=== PATIENT | female | born 1995 | race African-American/Black ===

== ENCOUNTER 2020-09-22 18:29 | Emergency (ER) | payer OTHER, SELFPAY ==
[2020-09-22 18:44] VITALS: BP 110/87; PULSE 63; RESP 20; TEMP 36.8; O2SAT 100
--- NOTE | 2020-09-22 21:09 | PC.NURSE ---
patient wants to leave to go to the hospital that she had my baby at .
== END 2020-09-22 21:10 | disposition left against medical advice (07) ==
DX: R51.9 Headache, unspecified (principal)
CPT/HCPCS: 99199

== ENCOUNTER 2025-02-21 14:35 | Emergency (ER) | payer OTHER, SELFPAY ==
--- NOTE | ~2025-02-21 | CT_ITS ---
EXAMINATION: CT abdomen pelvis w con DATE: 02/21/2025 19:06 INDICATION: Lower abdominal pain TECHNIQUE: Computed tomography (CT) of the abdomen and pelvis was performed with 100 mL Omnipaque-350 intravenous contrast. Automated exposure control and iterative reconstruction technique were employe d. The dose-length product was 169.85 mGy-cm. COMPARISON: None FINDINGS: Lung bases are clear. Heart size is normal. No pericardial or pleural effusion. Focal hepatic steatos is at the ligamentum teres. Gallbladder, spleen, pancreas, bilateral adrenal glands and kidneys are n ormal. Bowels including the appendix are normal. Bladder is normal. Anteverted uterus and bilateral a dnexa are unremarkable. Minimal likely physiologic free fluid in the cul-de-sac. No free intraperiton eal gas. No pathologically enlarged abdominal or pelvic lymphadenopathy. Mild thoracolumbar dextrocur vature. IMPRESSION: 1. No acute intra-abdominal/pelvic process. Reviewed, dictated and finalized at location A.
--- NOTE | ~2025-02-21 | US_ITS ---
EXAMINATION: US pelvic complete w TV DATE: 02/21/2025 22:18 INDICATION: Lower abdominal pain. Assess for ovarian torsion. TECHNIQUE: Multiple transabdominal and endovaginal sonographic images of the pelvis were obtained. COMPARISON: CT dated 02/21/2025 FINDINGS: The uterus measures 8.1 x 3.9 x 5.1 cm. The endometrial complex measures 4 mm in thickness. 7 mm ane choic nabothian cyst at the cervix. The right ovary measures 3.2 x 2.1 x 2.2 cm. The left ovary measu res 2.8 x 1.4 x 1.6 cm. There is normal vascular flow with arterial waveforms in both ovaries. There is small amount of anechoic free fluid in the cul-de-sac. IMPRESSION: 1. Normal vascular flow identified in both ovaries.. Reviewed, dictated and finalized at location A.
--- OUTSIDE RECORDS SUMMARY | 2025-02-21 14:38 | XMS_ITS | Clinical Summary ---
Author Organization [facility] Address [address] [place] [id number] Care Team Providers Care Photonics Technician Name Role Phone Chayo Kee QUANGMal Primary Care Provider [phone] Allergies No known active allergies Social History Tobacco Use Types Packs/Day Years Used Date Smoking Tobacco: Never Smokeless Tobacco: Never Alcohol Use Standard Drinks/Week Comments No 0 (1 standard drink = 0.6 oz pur e alcohol) AUDIT-C Answer Date Recorded Frequency of Alcohol Consumption Never 06/12/2019 Average Number of Drinks Not on file 019 Frequency of Binge Drinking Not on file 06/01 Comments No Sex and Gender Information Value Date Recorded Sex Assigned at Not on file Legal Sex Female 5:47 PM CDT Gender Identity Not on file Sexual Orientation Not on file Last Filed Vital Signs Vital Sign Reading Time Taken Comments Blood Pressure 115/80 05/26/2019 6:01 PM CDT Pulse 68 05/26/2019 6:01 PM CDT Temperature 36.9 C (98.5 F) 05/26/2019 6:01 PM CDT Respiratory Rate 20 05/26/2019 6:01 PM CDT Oxygen Saturation 100% 05/26/2019 6:01 PM CDT Inhaled Oxygen Concentration - - Weight 45.4 kg (100 lb) 05/26/2019 6:01 PM CDT Height 165.1 cm (5' 5) 05/26/2019 6:01 PM CDT Body Mass Index 16.64 05/26/2019 6:01 PM CDT Plan of Treatment Health Maintenance Due Date Last Done Comments Cervical Cancer Screening Pa p Smear (Age 21 to 29) Every 3 Years 1996 Cervical Cancer Screening 1996 Annual Physical 02/01/1999 Hepatitis C 02/01/2014 DTaP, Tdap and Td Vaccines ( 1 - Tdap) 02/01/2015 Hepatitis B Vaccines (1 of 3 - 19+ 3-dose series) 02/01/2015 HPV Vaccines (1 - 3-dose SCD M series) 02/01/2023 COVID-19 Vaccine (1 - 2023-2 5 season) 2024 Meningococcal B Vaccine Aged Out No l onger eligible based on patient's age to complete this topic Meningococcal Vaccine Aged Out No dea barry eligible based on patient's age to complete this topic Pneumococcal Vaccine: Pediat rics (0 to 5 Years) and At-Risk Patients (6 to 49 Years) Aged Out No longer eligible b ased on patient's age to complete this topic RSV Immunizations Under 20 Months Aged Out No longer eligible based on patient's age to complete this topic Care Teams Photonics Technician Relationship Specialty Start Date End Date Chayo Kee CNM [address] [facility] [address] [place] [address] PCP - General [facility] 05/26/19
--- OUTSIDE RECORDS SUMMARY | 2025-02-21 14:39 | XMS_ITS | Clinical Summary ---
Author Organization [facility] Address [address] [place] [id number] Care Team Providers Care Administrative Assistant Front Desk Name Role Phone Yoselyn Judge MD Unavailable [phone] Source Comments [facility],non-owned Affiliates and Associated Physician Practices is amultiple site organization consisting of ambulatory clinics and hospital sitesin [place], [place], [place] and [place]. This disclosure is being madepursuant to the Care Everywhere program and may not contain all information available regarding this patient. Last updated 18.[facility] Allergies No known active allergies Medications * Be aware that medications may not be up to date on this document. Alwaysverify current medications with the patient. cyclobenzaprin e (FLEXERIL) 5 MG tablet Take 1 (one) tablet by mouth 3 times daily as needed (Muscle spasms) 30 tablet 1 Active acetaminophen (Tylenol) 500 MG tablet Take 2 (two) tablets by mouth 3 times daily Maximum allowable Acetaminophen amount = 4 Grams (4000 mg) / 24 hours. 5 Active ibuprofen (Motrin) 800 MG tablet Take 1 (one) tablet by mouth every 8 hours as needed for Pain 5 Active Active Problems Problem Noted Date Diagnosed Date Hypokalemia 12/07/2024 Assessment & Plan (12/12/2024 10:28 AM CDT): Replete PRN Patient not tolerating IV replacement or tablet, ok for powder Assessment & Plan (12/11/2024 9:05 AM CDT): Replete PRN Patient not tolerating IV replacement or tablet, ok for powder Assessment & Plan (12/10/2024 11:40 AM CDT): Replete PRN Patient not tolerating IV replacement or tablet, ok for powder Assessment & Plan (12/09/2024 11:41 AM CDT): Replete PRN Patient not tolerating IV replacement or tablet, ok for powder Assessment & Plan (12/08/2024 10:58 AM CDT): Replete PRN Patient not tolerating IV replacement or tablet, ok for powder Assessment & Plan (12/07/2024 4:08 PM CDT): Replete PRN Patient not tolerating IV replacement or tablet, will order powder Normocytic anemia 12/07/2024 Assessment & Plan (12/12/2024 10:28 AM CDT): Monitor. No evidence of active bleeding. Stable vitals. Consider iron studies or further workup pending serial labs. Assessment & Plan (12/11/2024 9:05 AM CDT): Monitor. No evidence of active bleeding. Stable vitals. Consider iron studies or further workup pending serial labs. Assessment & Plan (12/10/2024 11:40 AM CDT): Monitor. No evidence of active bleeding. Stable vitals. Consider iron studies or further workup pending serial labs. Assessment & Plan (12/09/2024 11:41 AM CDT): Monitor. No evidence of active bleeding. Stable vitals. Consider iron studies or further workup pending serial labs. Assessment & Plan (12/08/2024 10:58 AM CDT): Monitor. No evidence of active bleeding. Stable vitals. Consider iron studies or further workup pending serial labs. Assessment & Plan (12/07/2024 4:08 PM CDT): Hgb 12.6 -> 10.4, suspect dilutional due to IVF. No evidence of active bleeding otherwise. Stable vitals. Will monitor. Consider iron studies or further workup pending serial labs. Pelvic pain in female 12/06/2024 Assessment & Plan (12/12/2024 10:28 AM CDT): - initially presenting to [facility] for lower abdominal pain associated with nausea/vomiting; although similar in nature to a prior UTI, urinalysis this admission negative, symptoms most likely secondary to PID given positive cervical motion tenderness noted in the ED - CT of the abdomen grossly unremarkable; mildly edematous gallbladder without stones, although RUQ U/S could be ordered if there was concern for cholecystitis current clinical picture does not support this - s/p IVF in ED PLAN: - continue IV ceftriaxone, doxycycline, and metronidazole while IP -- At discharge: [PO doxycycline 100 mg BID, PO metronidazole 500 mg BID] to complete 2 weeks. Can give dose of CTX on day of discharge as well. - pain control - tylenol/ibuprofen reduce morphine today to q4h PRN, decrease further tomorrow. - antiemetics as needed Assessment & Plan (12/11/2024 10:22 AM CDT): - initially presenting to [facility] for lower abdominal pain associated with nausea/vomiting; although similar in nature to a prior UTI, urinalysis this admission negative, symptoms most likely secondary to PID given positive cervical motion tenderness noted in the ED - CT of the abdomen grossly unremarkable; mildly edematous gallbladder without stones, although RUQ U/S could be ordered if there was concern for cholecystitis current clinical picture does not support this - s/p IVF in ED PLAN: - continue IV ceftriaxone, doxycycline, and metronidazole while IP -- At discharge: [PO doxycycline 100 mg BID, PO metronidazole 500 mg BID] to complete 2 weeks. Can give dose of CTX on day of discharge as well. - pain control - tylenol/ibuprofen reduce morphine today to q4h PRN, decrease further tomorrow. - antiemetics as needed Assessment & Plan (12/10/2024 11:40 AM CDT): - initially presenting to [facility] for lower abdominal pain associated with nausea/vomiting; although similar in nature to a prior UTI, urinalysis this admission negative, symptoms most likely secondary to PID given positive cervical motion tenderness noted in the ED - CT of the abdomen grossly unremarkable; mildly edematous gallbladder without stones, although RUQ U/S could be ordered if there was concern for cholecystitis current clinical picture does not support this - s/p IVF in ED PLAN: - continue IV ceftriaxone, doxycycline, and metronidazole while IP -- At discharge: [PO doxycycline 100 mg BID, PO metronidazole 500 mg BID] to complete 2 weeks. Can give dose of CTX on day of discharge as well. - pain control - reduce morphine today to q4h PRN, decrease further tomorrow. - antiemetics as needed Assessment & Plan (12/09/2024 11:41 AM CDT): - initially presenting to [facility] for lower abdominal pain associated with nausea/vomiting; although similar in nature to a prior UTI, urinalysis this admission negative, symptoms most likely secondary to PID given positive cervical motion tenderness noted in the ED - CT of the abdomen grossly unremarkable; mildly edematous gallbladder without stones, although RUQ U/S could be ordered if there was concern for cholecystitis current clinical picture does not support this - s/p IVF in ED PLAN: - Encourage PO - continue ceftriaxone, doxycycline, and metronidazole, plan for two weeks treatment, will transition to PO when able - pain control - will work to reduce IV pain meds over next 24h. - antiemetics as needed - if no improvement in symptoms can consider additional workup/management including potential RUQ U/S and/or OBGYN consultation Assessment & Plan (12/08/2024 10:58 AM CDT): - initially presenting to [facility] for lower abdominal pain associated with nausea/vomiting; although similar in nature to a prior UTI, urinalysis this admission negative, symptoms most likely secondary to PID given positive cervical motion tenderness noted in the ED - CT of the abdomen grossly unremarkable; mildly edematous gallbladder without stones, although RUQ U/S could be ordered if there was concern for cholecystitis current clinical picture does not support this - s/p IVF in ED PLAN: - Encourage PO - continue ceftriaxone, doxycycline, and metronidazole, plan for two weeks treatment, will transition to PO when able - pain control - antiemetics as needed - if no improvement in symptoms can consider additional workup/management including potential RUQ U/S and/or OBGYN consultation Assessment & Plan (12/07/2024 4:08 PM CDT): - initially presenting to [facility] for lower abdominal pain associated with nausea/vomiting; although similar in nature to a prior UTI, urinalysis this admission negative, symptoms most likely secondary to PID given positive cervical motion tenderness noted in the ED - CT of the abdomen grossly unremarkable; mildly edematous gallbladder without stones, although RUQ U/S could be ordered if there was concern for cholecystitis current clinical picture does not support this - s/p IVF in ED PLAN: - continue ceftriaxone, doxycycline, and metronidazole, plan for two weeks treatment, hopefully can transition to PO regimen in 48-72 hours - pain control - antiemetics as needed - if no improvement in symptoms can consider additional workup/management including potential RUQ U/S and/or OBGYN consultation Assessment & Plan (12/06/2024 2:49 PM CDT): - initially presenting to [facility] for lower abdominal pain associated with nausea/vomiting; although similar in nature to a prior UTI, urinalysis this admission negative, symptoms most likely secondary to PID given positive cervical motion tenderness noted in the ED - CT of the abdomen grossly unremarkable; mildly edematous gallbladder without stones, although RUQ U/S could be ordered if there was concern for cholecystitis current clinical picture does not support this PLAN: - continue ceftriaxone, doxycycline, and metronidazole as started in the ED - pain control; can provide short course of scheduled Toradol in addition to as-needed Tylenol and oxycodone - antiemetics as needed - if no improvement in symptoms can consider additional workup/management including potential RUQ U/S and/or OBGYN consultation Nausea and vomiting, unspecified vomiting type 0 12/06/2024 Assessment & Plan (12/12/2024 10:28 AM CDT): - initially presenting to [facility] for lower abdominal pain associated with nausea/vomiting; although similar in nature to a prior UTI, urinalysis this admission negative, symptoms most likely secondary to PID given positive cervical motion tenderness noted in the ED - CT of the abdomen grossly unremarkable; mildly edematous gallbladder without stones, although RUQ U/S could be ordered if there was concern for cholecystitis current clinical picture does not support this - s/p IVF in ED PLAN: - continue IV ceftriaxone, doxycycline, and metronidazole while IP -- At discharge: [PO doxycycline 100 mg BID, PO metronidazole 500 mg BID] to complete 2 weeks. Can give dose of CTX on day of discharge as well. - pain control - tylenol/ibuprofen reduce morphine today to q4h PRN, decrease further tomorrow. - antiemetics as needed Assessment & Plan (12/11/2024 10:22 AM CDT): - initially presenting to [facility] for lower abdominal pain associated with nausea/vomiting; although similar in nature to a prior UTI, urinalysis this admission negative, symptoms most likely secondary to PID given positive cervical motion tenderness noted in the ED - CT of the abdomen grossly unremarkable; mildly edematous gallbladder without stones, although RUQ U/S could be ordered if there was concern for cholecystitis current clinical picture does not support this - s/p IVF in ED PLAN: - continue IV ceftriaxone, doxycycline, and metronidazole while IP -- At discharge: [PO doxycycline 100 mg BID, PO metronidazole 500 mg BID] to complete 2 weeks. Can give dose of CTX on day of discharge as well. - pain control - tylenol/ibuprofen reduce morphine today to q4h PRN, decrease further tomorrow. - antiemetics as needed Assessment & Plan (12/10/2024 11:40 AM CDT): - initially presenting to [facility] for lower abdominal pain associated with nausea/vomiting; although similar in nature to a prior UTI, urinalysis this admission negative, symptoms most likely secondary to PID given positive cervical motion tenderness noted in the ED - CT of the abdomen grossly unremarkable; mildly edematous gallbladder without stones, although RUQ U/S could be ordered if there was concern for cholecystitis current clinical picture does not support this - s/p IVF in ED PLAN: - continue IV ceftriaxone, doxycycline, and metronidazole while IP -- At discharge: [PO doxycycline 100 mg BID, PO metronidazole 500 mg BID] to complete 2 weeks. Can give dose of CTX on day of discharge as well. - pain control - reduce morphine today to q4h PRN, decrease further tomorrow. - antiemetics as needed Assessment & Plan (12/09/2024 11:41 AM CDT): - initially presenting to [facility] for lower abdominal pain associated with nausea/vomiting; although similar in nature to a prior UTI, urinalysis this admission negative, symptoms most likely secondary to PID given positive cervical motion tenderness noted in the ED - CT of the abdomen grossly unremarkable; mildly edematous gallbladder without stones, although RUQ U/S could be ordered if there was concern for cholecystitis current clinical picture does not support this - s/p IVF in ED PLAN: - Encourage PO - continue ceftriaxone, doxycycline, and metronidazole, plan for two weeks treatment, will transition to PO when able - pain control - will work to reduce IV pain meds over next 24h. - antiemetics as needed - if no improvement in symptoms can consider additional workup/management including potential RUQ U/S and/or OBGYN consultation Assessment & Plan (12/08/2024 10:58 AM CDT): - initially presenting to [facility] for lower abdominal pain associated with nausea/vomiting; although similar in nature to a prior UTI, urinalysis this admission negative, symptoms most likely secondary to PID given positive cervical motion tenderness noted in the ED - CT of the abdomen grossly unremarkable; mildly edematous gallbladder without stones, although RUQ U/S could be ordered if there was concern for cholecystitis current clinical picture does not support this - s/p IVF in ED PLAN: - Encourage PO - continue ceftriaxone, doxycycline, and metronidazole, plan for two weeks treatment, will transition to PO when able - pain control - antiemetics as needed - if no improvement in symptoms can consider additional workup/management including potential RUQ U/S and/or OBGYN consultation Assessment & Plan (12/07/2024 4:08 PM CDT): - initially presenting to [facility] for lower abdominal pain associated with nausea/vomiting; although similar in nature to a prior UTI, urinalysis this admission negative, symptoms most likely secondary to PID given positive cervical motion tenderness noted in the ED - CT of the abdomen grossly unremarkable; mildly edematous gallbladder without stones, although RUQ U/S could be ordered if there was concern for cholecystitis current clinical picture does not support this - s/p IVF in ED PLAN: - continue ceftriaxone, doxycycline, and metronidazole, plan for two weeks treatment, hopefully can transition to PO regimen in 48-72 hours - pain control - antiemetics as needed - if no improvement in symptoms can consider additional workup/management including potential RUQ U/S and/or OBGYN consultation Assessment & Plan (12/06/2024 2:49 PM CDT): - initially presenting to [facility] for lower abdominal pain associated with nausea/vomiting; although similar in nature to a prior UTI, urinalysis this admission negative, symptoms most likely secondary to PID given positive cervical motion tenderness noted in the ED - CT of the abdomen grossly unremarkable; mildly edematous gallbladder without stones, although RUQ U/S could be ordered if there was concern for cholecystitis current clinical picture does not support this PLAN: - continue ceftriaxone, doxycycline, and metronidazole as started in the ED - pain control; can provide short course of scheduled Toradol in addition to as-needed Tylenol and oxycodone - antiemetics as needed - if no improvement in symptoms can consider additional workup/management including potential RUQ U/S and/or OBGYN consultation Abdominal pain, unspecified abdominal location 0 12/06/2024 Assessment & Plan (12/12/2024 10:28 AM CDT): - initially presenting to [facility] for lower abdominal pain associated with nausea/vomiting; although similar in nature to a prior UTI, urinalysis this admission negative, symptoms most likely secondary to PID given positive cervical motion tenderness noted in the ED - CT of the abdomen grossly unremarkable; mildly edematous gallbladder without stones, although RUQ U/S could be ordered if there was concern for cholecystitis current clinical picture does not support this - s/p IVF in ED PLAN: - continue IV ceftriaxone, doxycycline, and metronidazole while IP -- At discharge: [PO doxycycline 100 mg BID, PO metronidazole 500 mg BID] to complete 2 weeks. Can give dose of CTX on day of discharge as well. - pain control - tylenol/ibuprofen reduce morphine today to q4h PRN, decrease further tomorrow. - antiemetics as needed Assessment & Plan (12/11/2024 10:22 AM CDT): - initially presenting to [facility] for lower abdominal pain associated with nausea/vomiting; although similar in nature to a prior UTI, urinalysis this admission negative, symptoms most likely secondary to PID given positive cervical motion tenderness noted in the ED - CT of the abdomen grossly unremarkable; mildly edematous gallbladder without stones, although RUQ U/S could be ordered if there was concern for cholecystitis current clinical picture does not support this - s/p IVF in ED PLAN: - continue IV ceftriaxone, doxycycline, and metronidazole while IP -- At discharge: [PO doxycycline 100 mg BID, PO metronidazole 500 mg BID] to complete 2 weeks. Can give dose of CTX on day of discharge as well. - pain control - tylenol/ibuprofen reduce morphine today to q4h PRN, decrease further tomorrow. - antiemetics as needed Assessment & Plan (12/10/2024 11:40 AM CDT): - initially presenting to [facility] for lower abdominal pain associated with nausea/vomiting; although similar in nature to a prior UTI, urinalysis this admission negative, symptoms most likely secondary to PID given positive cervical motion tenderness noted in the ED - CT of the abdomen grossly unremarkable; mildly edematous gallbladder without stones, although RUQ U/S could be ordered if there was concern for cholecystitis current clinical picture does not support this - s/p IVF in ED PLAN: - continue IV ceftriaxone, doxycycline, and metronidazole while IP -- At discharge: [PO doxycycline 100 mg BID, PO metronidazole 500 mg BID] to complete 2 weeks. Can give dose of CTX on day of discharge as well. - pain control - reduce morphine today to q4h PRN, decrease further tomorrow. - antiemetics as needed Assessment & Plan (12/09/2024 11:41 AM CDT): - initially presenting to [facility] for lower abdominal pain associated with nausea/vomiting; although similar in nature to a prior UTI, urinalysis this admission negative, symptoms most likely secondary to PID given positive cervical motion tenderness noted in the ED - CT of the abdomen grossly unremarkable; mildly edematous gallbladder without stones, although RUQ U/S could be ordered if there was concern for cholecystitis current clinical picture does not support this - s/p IVF in ED PLAN: - Encourage PO - continue ceftriaxone, doxycycline, and metronidazole, plan for two weeks treatment, will transition to PO when able - pain control - will work to reduce IV pain meds over next 24h. - antiemetics as needed - if no improvement in symptoms can consider additional workup/management including potential RUQ U/S and/or OBGYN consultation Assessment & Plan (12/08/2024 10:58 AM CDT): - initially presenting to [facility] for lower abdominal pain associated with nausea/vomiting; although similar in nature to a prior UTI, urinalysis this admission negative, symptoms most likely secondary to PID given positive cervical motion tenderness noted in the ED - CT of the abdomen grossly unremarkable; mildly edematous gallbladder without stones, although RUQ U/S could be ordered if there was concern for cholecystitis current clinical picture does not support this - s/p IVF in ED PLAN: - Encourage PO - continue ceftriaxone, doxycycline, and metronidazole, plan for two weeks treatment, will transition to PO when able - pain control - antiemetics as needed - if no improvement in symptoms can consider additional workup/management including potential RUQ U/S and/or OBGYN consultation Assessment & Plan (12/07/2024 4:08 PM CDT): - initially presenting to [facility] for lower abdominal pain associated with nausea/vomiting; although similar in nature to a prior UTI, urinalysis this admission negative, symptoms most likely secondary to PID given positive cervical motion tenderness noted in the ED - CT of the abdomen grossly unremarkable; mildly edematous gallbladder without stones, although RUQ U/S could be ordered if there was concern for cholecystitis current clinical picture does not support this - s/p IVF in ED PLAN: - continue ceftriaxone, doxycycline, and metronidazole, plan for two weeks treatment, hopefully can transition to PO regimen in 48-72 hours - pain control - antiemetics as needed - if no improvement in symptoms can consider additional workup/management including potential RUQ U/S and/or OBGYN consultation Assessment & Plan (12/06/2024 2:49 PM CDT): - initially presenting to [facility] for lower abdominal pain associated with nausea/vomiting; although similar in nature to a prior UTI, urinalysis this admission negative, symptoms most likely secondary to PID given positive cervical motion tenderness noted in the ED - CT of the abdomen grossly unremarkable; mildly edematous gallbladder without stones, although RUQ U/S could be ordered if there was concern for cholecystitis current clinical picture does not support this PLAN: - continue ceftriaxone, doxycycline, and metronidazole as started in the ED - pain control; can provide short course of scheduled Toradol in addition to as-needed Tylenol and oxycodone - antiemetics as needed - if no improvement in symptoms can consider additional workup/management including potential RUQ U/S and/or OBGYN consultation Pelvic inflammatory disease 12/06/2024 Assessment & Plan (12/12/2024 10:28 AM CDT): - initially presenting to [facility] for lower abdominal pain associated with nausea/vomiting; although similar in nature to a prior UTI, urinalysis this admission negative, symptoms most likely secondary to PID given positive cervical motion tenderness noted in the ED - CT of the abdomen grossly unremarkable; mildly edematous gallbladder without stones, although RUQ U/S could be ordered if there was concern for cholecystitis current clinical picture does not support this - s/p IVF in ED PLAN: - continue IV ceftriaxone, doxycycline, and metronidazole while IP -- At discharge: [PO doxycycline 100 mg BID, PO metronidazole 500 mg BID] to complete 2 weeks. Can give dose of CTX on day of discharge as well. - pain control - tylenol/ibuprofen reduce morphine today to q4h PRN, decrease further tomorrow. - antiemetics as needed Assessment & Plan (12/11/2024 10:22 AM CDT): - initially presenting to [facility] for lower abdominal pain associated with nausea/vomiting; although similar in nature to a prior UTI, urinalysis this admission negative, symptoms most likely secondary to PID given positive cervical motion tenderness noted in the ED - CT of the abdomen grossly unremarkable; mildly edematous gallbladder without stones, although RUQ U/S could be ordered if there was concern for cholecystitis current clinical picture does not support this - s/p IVF in ED PLAN: - continue IV ceftriaxone, doxycycline, and metronidazole while IP -- At discharge: [PO doxycycline 100 mg BID, PO metronidazole 500 mg BID] to complete 2 weeks. Can give dose of CTX on day of discharge as well. - pain control - tylenol/ibuprofen reduce morphine today to q4h PRN, decrease further tomorrow. - antiemetics as needed Assessment & Plan (12/10/2024 11:40 AM CDT): - initially presenting to [facility] for lower abdominal pain associated with nausea/vomiting; although similar in nature to a prior UTI, urinalysis this admission negative, symptoms most likely secondary to PID given positive cervical motion tenderness noted in the ED - CT of the abdomen grossly unremarkable; mildly edematous gallbladder without stones, although RUQ U/S could be ordered if there was concern for cholecystitis current clinical picture does not support this - s/p IVF in ED PLAN: - continue IV ceftriaxone, doxycycline, and metronidazole while IP -- At discharge: [PO doxycycline 100 mg BID, PO metronidazole 500 mg BID] to complete 2 weeks. Can give dose of CTX on day of discharge as well. - pain control - reduce morphine today to q4h PRN, decrease further tomorrow. - antiemetics as needed Assessment & Plan (12/09/2024 11:41 AM CDT): - initially presenting to [facility] for lower abdominal pain associated with nausea/vomiting; although similar in nature to a prior UTI, urinalysis this admission negative, symptoms most likely secondary to PID given positive cervical motion tenderness noted in the ED - CT of the abdomen grossly unremarkable; mildly edematous gallbladder without stones, although RUQ U/S could be ordered if there was concern for cholecystitis current clinical picture does not support this - s/p IVF in ED PLAN: - Encourage PO - continue ceftriaxone, doxycycline, and metronidazole, plan for two weeks treatment, will transition to PO when able - pain control - will work to reduce IV pain meds over next 24h. - antiemetics as needed - if no improvement in symptoms can consider additional workup/management including potential RUQ U/S and/or OBGYN consultation Assessment & Plan (12/08/2024 10:58 AM CDT): - initially presenting [facility] associated with nausea/vomiting; although similar in nature to a prior UTI, urinalysis this admission negative, symptoms most likely secondary to PID given positive cervical motion tenderness noted in the ED - CT of the abdomen grossly unremarkable; mildly edematous gallbladder without stones, although RUQ U/S could be ordered if there was concern for cholecystitis current clinical picture does not support this - s/p IVF in ED PLAN: - Encourage PO - continue ceftriaxone, doxycycline, and metronidazole, plan for two weeks treatment, will transition to PO when able - pain control - antiemetics as needed - if no improvement in symptoms can consider additional workup/management including potential RUQ U/S and/or OBGYN consultation Assessment & Plan (12/07/2024 4:08 PM CDT): - initially presenting to [facility] pain associated with nausea/vomiting; although similar in nature to a prior UTI, urinalysis this admission negative, symptoms most likely secondary to PID given positive cervical motion tenderness noted in the ED - CT of the abdomen grossly unremarkable; mildly edematous gallbladder without stones, although RUQ U/S could be ordered if there was concern for cholecystitis current clinical picture does not support this - s/p IVF in ED PLAN: - continue ceftriaxone, doxycycline, and metronidazole, plan for two weeks treatment, hopefully can transition to PO regimen in 48-72 hours - pain control - antiemetics as needed - if no improvement in symptoms can consider additional workup/management including potential RUQ U/S and/or OBGYN consultation Assessment & Plan (12/06/2024 2:49 PM CDT): - initially presenting to [facility] for [facility] pain associated with nausea/vomiting; although similar in nature to a prior UTI, urinalysis this admission negative, symptoms most likely secondary to PID given positive cervical motion tenderness noted in the ED - CT of the abdomen grossly unremarkable; mildly edematous gallbladder without stones, although RUQ U/S could be ordered if there was concern for cholecystitis current clinical picture does not support this PLAN: - continue ceftriaxone, doxycycline, and metronidazole as started in the ED - pain control; can provide short course of scheduled Toradol in addition to as-needed Tylenol and oxycodone - antiemetics as needed - if no improvement in symptoms can consider additional workup/management including potential RUQ U/S and/or OBGYN consultation Resolved Problems Problem Noted Date Diagnosed Date Resolved Date High anion gap metabolic acidosis 12/06/2024 12/07/2024 Assessment & Plan (12/07/2024 4:08 PM CDT): - bicarb on arrival of 14 with an anion gap of 17; additional workup notable for negative lactate but mild elevation of beta hydroxybutyrate of 0.79. Suspect starvation ketosis. Acidosis resolved the next day. Assessment & Plan (12/06/2024 2:49 PM CDT): - bicarb on arrival of 14 with an anion gap of 17; additional workup notable for negative lactate but mild elevation of beta hydroxybutyrate of 0.79 - given mild elevation at this time presumed that elevation is most likely secondary to a ketosis driven by starvation/nausea and vomiting, as she does not have risk factors for a euglycemic DKA - continue to monitor Elevated beta-hydroxybutyrate 12/06/2024 12/07/2024 Assessment & Plan (12/07/2024 4:08 PM CDT): - bicarb on arrival of 14 with an anion gap of 17; additional workup notable for negative lactate but mild elevation of beta hydroxybutyrate of 0.79. Suspect starvation ketosis. Acidosis resolved the next day. Assessment & Plan (12/06/2024 2:49 PM CDT): - bicarb on arrival of 14 with an anion gap of 17; additional workup notable for negative lactate but mild elevation of beta hydroxybutyrate of 0.79 - given mild elevation at this time presumed that elevation is most likely secondary to a ketosis driven by starvation/nausea and vomiting, as she does not have risk factors for a euglycemic DKA - continue to monitor Encounters Date Type Department Care Team Description 12/18/2024 Transitional Care [facility] - Care Coordination [address] [place] [address] Zohreh Colby MSW Transitional Care 12/17/2024 Transitional Care [facility] - Care Coordination [address] [place] [address] Zohreh Colby MSW Transitional Care 12/17/2024 Telephone Transitional Care at [address] [phone] Jazmyne Mtz, DEWEY Missed Appointment 12/14/2024 Telephone Transitional Care at [address] [phone] Zaria Ang, installer soft top 12/14/2024 Transitional Care [facility] - Care Coordination [address] [place] [phone] Zohreh Colby MSW Transitional Care 12/05/2024 7:22 PM CDT - 12/13/2024 3:50 PM CDT Hospital Encounter [facility] [address] [place] [address] Arnulfo Hurley MD Fite, MD Molly Celestin Joseph A, MD Garcia, Andrew M, MD Bastin, Taylor J, MD Albrecht, Ryan, DO Chinnery, Akrin, MD Masud, Dwain Scott MD Internal Medicine Discharge Disposition: Home or Self Care 12/05/2024 Travel from Last 3 Months Social History Tobacco Use Types Packs/Day Years Used Date Smoking Tobacco: Never Smokeless Tobacco: Never Tobacco Cessation:Counseling Given: Not Answered Alcohol Use Standard Drinks/Week Comments Yes 0 (1 standard drink = 0.6 oz pur e alcohol) AUDIT-C Answer Date Recorded Q1: How often do you have a drink containing alc ohol? Monthly or less 12/07/2024 Q2: How many drinks containi ng alcohol do you have on a typical day when you are drinking? 1 or 2 12/07/2024 Q3: How often do you have si x or more drinks on one occasion? Never 12/07/2024 Overall Financial Resource Strain (CARDIA) Answe r Date Recorded How hard is it for you to pa y for the very basics like food, housing, medical care, and heating? Not very hard 12/08/2024 [facility] [place] [facility] Occupat ional Health - Occupational Stress Questionnaire Answer Date Recorded Do you feel stress - tense, restless, nervous, or anxious, or unable to sleep at night because your mind is troubled all the time - these days? Only a little 12/08/2024 Hunger Vital Sign Answer Date Recorded Within the past 12 months, y ou worried that your food would run out before you got the money to buy more. Never true 12/09/19 25 Within the past 12 months, t he food you bought just didn't last and you didn't have money to get more. Never true 12/08/2024 PRAPARE - Transportation Answer Date Re corded In the past 12 months, has l ack of transportation kept you from medical appointments or from getting medications? No 11/29 In the past 12 months, has l ack of transportation kept you from meetings, work, or from getting things needed for daily living? No 12/08/2024 Housing Stability Vital Sign Answer Calvin e Recorded In the last 12 months, was t here a time when you were not able to pay the mortgage or rent on time? No 12/08/2024 In the past 12 months, how m any times have you moved where you were living? 1 12/08/2024 At any time in the past [address] [facility], were you homeless or living in a penitentiary (including now)? No 12/08/2024 Comments No Sex and Gender Information Value Date Recorded Sex Assigned at Not on file Legal Sex Female 12:47 AM CDT Gender Identity Not on file Sexual Orientation Not on file Last Filed Vital Signs Vital Sign Reading Time Taken Comments Blood Pressure 111/65 12/13/2024 11:51 AM CDT Pulse 89 12/13/2024 11:51 AM CDT Temperature 36.9 C (98.5 F) 12/13/2024 8:57 AM CDT Respiratory Rate 18 12/13/2024 11:51 AM CDT Oxygen Saturation 100% 12/13/2024 11:51 AM CDT Inhaled Oxygen Concentration - - Weight 50 kg (110 lb 3.2 oz) 12/06/2024 8:34 AM CDT Height 165.1 cm (5' 5) 12/06/2024 8:34 AM CDT Body Mass Index 18.34 12/06/2024 8:34 AM CDT Plan of Treatment Health Maintenance Due Date Last Done Comments HIV SCREENING 02/01/2011 HEPATITIS C SCREENING 01/28/2014 DTAP/TDAP/TD VACCINES (1 - Tdap) 02/01/2015 HEPATITIS B VACCINE (1 of 3 - 19+ 3-dose series) 02/01/2015 PAP SMEAR 02/01/2017 HPV VACCINE (1 - 3-dose SCDM series) 02/01/2023 COVID-19 VACCINE (1 - 2023-2 5 season) 2024 DEPRESSION SCREENING 08/01/2024 INFLUENZA VACCINE (#1) 2025 09/18/2020 ZOSTER VACCINE (1 of 2) 02/01/2046 HIB VACCINE Aged Out No longer eligi ble based on patient's age to complete this topic MENINGOCOCCAL (Group B) VACC INE SHARED DECISION-MAKING Aged Out No longer eligibl e based on patient's age to complete this topic MENINGOCOCCAL GROUPS A/C/Y/W VACCINE Aged Out No longer eligible b ased on patient's age to complete this topic PNEUMOCOCCAL VACCINE Aged Out No long er eligible based on patient's age to complete this topic Procedures Procedure Name Priority Date/Time Associated Diagnosis Comments CBC W/O DIFFERENTIAL AM Draw 12/12/2024 1:07 AM CDT RENAL FUNCTION PANEL AM Draw 12/12/2024 1:07 AM CDT CBC W/O DIFFERENTIAL AM Draw 12/11/2024 1:35 AM CDT RENAL FUNCTION PANEL AM Draw 12/11/2024 1:35 AM CDT CBC W/O DIFFERENTIAL AM Draw 12/10/2024 12:29 AM CDT RENAL FUNCTION PANEL AM Draw 12/10/2024 12:29 AM CDT CBC W/O DIFFERENTIAL AM Draw 12/09/2024 5:57 PM CDT RENAL FUNCTION PANEL AM Draw 12/09/2024 5:57 PM CDT BASIC METABOLIC PANEL (CALCIUM TOTAL) Routine 12/08/2024 12:12 PM CDT XR ABDOMEN KUB PORTABLE STAT 12/08/19 5:57 AM CDT Abdominal pain, unspecified abdominal location PHOSPHORUS BLOOD Routine 12/07/2024 12:4 3 AM CDT Abdominal pain, unspecified abdominal location MAGNESIUM BLOOD Routine 12/07/2024 12:43 AM CDT Abdominal pain, unspecified abdominal location BASIC METABOLIC PANEL (CALCIUM TOTAL) Routine 12/07/2024 12:43 AM CDT Abdominal pain, unspecified abdominal location CBC W/O DIFFERENTIAL Routine 12/07/2024 12:43 AM CDT Abdominal pain, unspecified abdominal location HYDROXYBUTYRATE BETA STAT 12/06/2024 1:03 PM CDT Abdominal pain, unspecified abdominal location Nausea and vomiting, unspecified vomiting type LACTIC ACID BLOOD STAT 12/06/2024 1:0 3 PM CDT Abdominal pain, unspecified abdominal location Nausea and vomiting, unspecified vomiting type CT ABDOMEN PELVIS W CONTRAST STAT 12/05/2024 11:39 PM CDT Abdominal pain, unspecified abdominal location TRICHOMONAS VAGINALIS KASSIDY STAT 12/05/2024 9:14 PM CDT CHLAMYDIA AND N. GONORRHOEAE KASSIDY STAT 12/05/2024 9:14 PM CDT URINALYSIS W/MICROSCOPIC REFLEX TO CULTURE STAT 12/05/2024 7:46 PM CDT HCG BETA BLOOD QUANTITATIVE STAT 12/05/2024 5:16 PM CDT LIPASE BLOOD STAT 12/05/2024 5:16 PM CDT COMPREHENSIVE METABOLIC PANEL STAT 12/05/2024 5:16 PM CDT CBC W AUTO DIFFERENTIAL STAT 12/06/19 5:16 PM CDT from Last 3 Months Results * (ABNORMAL) CBC W/O DIFFERENTIAL (12/12/2024 1:07 AM CDT) Only the most recent of5 resultswithin the time period is included. WBC 3.7(L) 4.0 - 10.7 x10E9/L 12/12/2024 1:37 AM [facility] RBC Count 3.83(L) 3.90 - 5.20 x10E12/L 12/12/2024 1:37 AM [facility] Hemoglobin 11.2(L) 11.9 - 15.8 g/dL 12/12/2024 1:37 AM [facility] Hematocrit 33.1(L) 34.8 - 46.1 % 12/12/2024 1:37 AM [facility] MCV 86.4 80.0 - 98.0 fL 12/12/2024 1:37 AM [facility] MCH 29.2 26.7 - 33.6 pg 12/12/2024 1:37 AM [facility] MCHC 33.8 31.7 - 36.3 g/dL 12/12/2024 1:37 AM [facility] RDW-CV 12.4 11.3 - 14.8 % 12/12/2024 1:37 AM [facility] Platelet Count 254 150 - 420 x10E9/L 12/12/2024 1:37 AM [facility] MPV 9.7 7.8 - 11.4 fL 12/12/2024 1:37 AM [facility] Blood BLOOD SPECIMEN / Unknown Lab Venipuncture / Unknown 12/12/2024 1:07 AM CDT 12/12/2024 1:30 AM CDT us Saurav Rodriguez DO LAB - HEMATOLOGY ORDERABLES Fin al Result [facility] [address] [place] [address], [place] [phone] * (ABNORMAL) RENAL FUNCTION PANEL (12/12/2024 1:07 AM [facility] [place]) Only the most recent of4 resultswithin the time period is included. BUN 10 7 - 26 mg/dL 12/12/2024 2:09 AM [facility] Creatinine 0.56 0.56 - 0.96 mg/dL 12/12/2024 2:09 AM [facility] Sodium 137 136 - 145 mmol/L 12/12/2024 2:09 AM [facility] Potassium 3.7 3.5 - 4.5 mmol/L 12/12/2024 2:09 AM [facility] Chloride 103 98 - 107 mmol/L 12/12/2024 2:09 AM [facility] CO2 24 22 - 29 mmol/L 12/12/2024 2:09 AM [facility] Glucose 103(H) 70 - 99 mg/dL 12/12/2024 2:09 AM [facility] Albumin 3.7 3.4 - 5.0 g/dL 12/12/2024 2:09 AM [facility] Calcium 8.8 8.4 - 10.2 mg/dL 12/12/2024 2:09 AM [facility] Phosphorus 3.8 2.9 - 5.1 mg/dL 12/12/2024 2:09 AM [facility] Anion Gap 10 6 - 16 12/12/2024 2:09 AM [facility] BUN/Creatinine Ratio 18 7 - 23 12/12/2024 2:09 AM [facility] Osmolality Calculated 283 275 - 295 mOsm/kg 12/12/2024 2:09 AM [facility] eGFR by CKD-EPI >90 >=90 mL/min/1.7 3 m2 12/12/2024 2:09 AM [facility] Blood BLOOD SPECIMEN / Unknown Lab Venipuncture / Unknown 12/12/2024 1:07 AM CDT 12/12/2024 1:29 AM T us Saurav Rodriguez DO LAB - CHEMISTRY ORDERABLES Annalisa l Result [facility] [address] [place] [address], [place] [phone] * (ABNORMAL) BASIC METABOLIC PANEL (CALCIUM TOTAL) (12/08/2024 12:12 PM CDT) Only the most recent of2 resultswithin the time period is included. BUN 8 7 - 26 mg/dL 12/08/2024 1:27 PM [facility] Creatinine 0.55(L) 0.56 - 0.96 mg/dL 12/08/2024 1:27 PM [facility] Sodium 137 136 - 145 mmol/L 12/08/2024 1:27 PM [facility] Potassium 3.8 3.5 - 4.5 mmol/L 12/08/2024 1:27 PM [facility] Chloride 107 98 - 107 mmol/L 12/08/2024 1:27 PM [facility] CO2 19(L) 22 - 29 mmol/L 12/08/2024 1:27 PM [facility] Glucose 97 70 - 99 mg/dL 12/08/2024 1:27 PM [facility] Calcium 8.6 8.4 - 10.2 mg/dL 12/08/2024 1:27 PM [facility] Anion Gap 11 6 - 16 12/08/2024 1:27 PM [facility] BUN/Creatinine Ratio 15 7 - 23 12/08/2024 1:27 PM [facility] Osmolality Calculated 282 275 - 295 mOsm/kg 12/08/2024 1:27 PM [facility] eGFR by CKD-EPI >90 >=90 mL/min/1.7 3 m2 12/08/2024 1:27 PM [facility] Blood BLOOD SPECIMEN / Unknown Lab Venipuncture / Unknown 12/08/2024 12:12 PM CDT 12/08/2024 1:02 PM CDT Saurav Rodriguez DO LAB - CHEMISTRY ORDERABLES Annalisa l Result [facility] [address] [place] [address], [place] [phone] * XR Abdomen Kub Portable (12/07/2024 5:57 AM CDT) Anatomical Region Laterality Modality Abdomen Digital Radiogra phy 12/07/2024 9:15 AM CDT Impressions 12/07/2024 10:51 AM CDT IMPRESSION: Non-obstructive bowel gas pattern. > Dictated by Garrison Landaverde DO ([employer]), 12/07/2024 9:16 AM. Jacquelin Mahmood MD have personally reviewed and interpreted this examination/study. > Interpreting Provider: Jacquelin Tran MD on 12/07/2024 10:51 AM Narrative 12/07/2024 10:51 AM CDT PROCEDURE: XR ABDOMEN KUB PORTABLE, DATE/TIME OF EXAM: 12/07/2024 5:57 AM, LOCATION [facility] INDICATION: R10.9: Abdominal pain, unspecified abdominal location ADDITIONAL CLINICAL INFORMATION: Ordering Provider Reason For Exam: biliary emesis, abd pain COMPARISON: None. FINDINGS: There is no dilatation of small or large bowel. No pneumoperitoneum or pathological calcification is seen. Lumbosacral transitional vertebra is likely in the form of sacralization of the L5 in the right. The osseous structures are otherwise intact. The lung bases are clear. Procedure Note Jacquelin Tran MD - 12/07/2024 PROCEDURE: XR ABDOMEN KUB PORTABLE, DATE/TIME OF EXAM: 12/07/2024 5:57AM, LOCATION [facility] INDICATION: R10.9: Abdominal pain, unspecified abdominal location ADDITIONAL CLINICAL INFORMATION: Ordering Provider Reason For Exam: biliary emesis, abd pain COMPARISON: None. FINDINGS: There is no dilatation of small or large bowel. No pneumoperitoneum or pathological calcification is seen. Lumbosacral transitional vertebra is likely in the form of sacralization of the L5 in the right. The osseous structures are otherwise intact. The lung bases are clear. IMPRESSION: Non-obstructive bowel gas pattern. > Dictated by Garrison Landaverde DO ([employer]), 12/07/2024 9:16 AM. I, Jacquelin Tran MD have personally reviewed and interpreted this examination/study. > Interpreting Provider: Jacquelin Tran MD on 12/07/2024 10:51 AM Brenden Barnes MD DIAGNOSTIC IMAGING ORDERABLE S Final Result * PHOSPHORUS BLOOD (12/07/2024 12:43 AM CDT) Phosphorus 3.0 2.9 - 5.1 mg/dL 12/07/2024 1:19 AM CDT [facility] Blood BLOOD SPECIMEN / Unknown Lab Venipuncture / Unknown 12/07/2024 12:43 AM CDT 12/07/2024 12:53 AM CDT Sharon Duggan MD LAB - CHEMISTRY ORDERABLES Fi nal Result Performing Organization Address City/[facility]/ZIP Co de Phone Number [address] [address], [place] [phone] * MAGNESIUM BLOOD (12/07/2024 12:43 AM CDT) Magnesium 1.9 1.6 - 2.6 mg/dL 12/07/2024 1:19 AM CDT [facility] Blood BLOOD SPECIMEN / Unknown Lab Venipuncture / Unknown 12/07/2024 12:43 AM CDT 12/07/2024 12:53 AM CDT Sharon Duggan MD LAB - CHEMISTRY ORDERABLES Fi nal Result [address] [address], [place] [phone] * (ABNORMAL) HYDROXYBUTYRATE BETA (12/06/2024 1:03 PM CDT) Beta-Hydroxybu tyrate 0.79(H) <0.50 mmol/L 12/06/2024 1:40 PM CDT [facility] Blood BLOOD SPECIMEN / Unknown Lab Venipuncture / Unknown 12/06/2024 1:03 PM CDT 12/06/2024 1:16 PM CDT us Sharon uDggan MD LAB - CHEMISTRY ORDERABLES Fi nal Result [address] [address], [place] [phone] * LACTIC ACID BLOOD (12/06/2024 1:03 PM CDT) Lactic Acid-Stat 1.1 <=2.0 mmol/L 12/06/2024 1:40 PM CDT [facility] Blood BLOOD SPECIMEN / Unknown Lab Venipuncture / Unknown 12/06/2024 1:03 PM CDT 12/06/2024 1:16 PM CDT us Sharon Duggan MD LAB - CHEMISTRY ORDERABLES Fi nal Result Performing Organization Address [facility] Co de Phone Number [address] [address], [place] [phone] * CT Abdomen Pelvis W Contrast (12/05/2024 11:39 PM CDT) Anatomical Region Laterality Modality Abdomen, Pelvis Computed Tomogra phy 12/05/2024 11:4 3 PM CDT Impressions 12/06/2024 1:50 AM CDT Impression: 1.Periportal edema, nonspecific. 2.Mildly edematous appearance of the adjacent gallbladder wall without intraluminal stones, possibly secondary to overall venous congestion given periportal edema. If there is concern for cholecystitis, consider right upper quadrant ultrasound. > Dictated by Dhruv Rascon MD (chairman president and chief executive officer). I, Tarun Andersen MD have personally reviewed and interpreted this examination/study. > Interpreting Provider: Tarun Andersen MD on 12/06/2024 1:50 AM Narrative 12/06/2024 1:50 AM CDT PROCEDURE: CT ABDOMEN PELVIS W CONTRAST, DATE/TIME OF EXAM: 12/05/2024 11:39 PM, LOCATION [facility] INDICATION: R10.9: Abdominal pain, unspecified abdominal location ADDITIONAL CLINICAL INFORMATION: Ordering Provider Reason For Exam: abd pain COMPARISON: None. TECHNIQUE: CT of the abdomen and pelvis was performed following the uneventful administration of 100 mL of Isovue 370 intravenous contrast according to standard protocol. Findings: Lower Chest: Normal. Liver: There is periportal edema. Other than focal fatty infiltration about the fossa ligament, the hepatic parenchyma enhances homogeneously. Gallbladder and Bile Ducts: Mildly edematous appearance of the gallbladder wall. No intraluminal stones identified. Spleen: Normal. Pancreas: Normal. Adrenals: Normal. Kidneys: The bilateral kidneys enhance symmetrically without evidence of hydronephrosis or nephrolithiasis. Gastrointestinal: The stomach and visualized loops of large and small bowel are unremarkable. Normal appendix. Mesentery/Peritoneum/Retroperitoneum: Normal. Bladder: The urinary bladder is distended with normal appearance of the urinary bladder wall. Reproductive Organs: The uterus is normal. Vasculature: No vascular abnormality is present. Bones: Bone windows demonstrate no suspicious lytic or blastic lesions. The visible osseous structures are intact. Soft tissues: Normal. Procedure Note Tarun Andersen MD - 12/06/2024 PROCEDURE: CT ABDOMEN PELVIS W CONTRAST, DATE/TIME OF EXAM: 12/05/2024 11:39 PM, LOCATION [facility] INDICATION: R10.9: Abdominal pain, unspecified abdominal location ADDITIONAL CLINICAL INFORMATION: Ordering Provider Reason For Exam: abd pain COMPARISON: None. TECHNIQUE: CT of the abdomen and pelvis was performed following the uneventful administration of 100 mL of Isovue 370 intravenous contrast according to standard protocol. Findings: Lower Chest: Normal. Liver: There is periportal edema. Other than focal fatty infiltration about the fossa ligament, the hepatic parenchyma enhances homogeneously. Gallbladder and Bile Ducts: Mildly edematous appearance of the gallbladder wall. No intraluminalstones identified. Spleen: Normal. Pancreas: Normal. Adrenals: Normal. Kidneys: The bilateral kidneys enhance symmetrically without evidence of hydronephrosis or nephrolithiasis. Gastrointestinal: The stomach and visualized loops of large and small bowel areunremarkable. Normal appendix. Mesentery/Peritoneum/Retroperitoneum: Normal. Bladder: The urinary bladder is distended with normal appearance of the urinary bladder wall. Reproductive Organs: The uterus is normal. Vasculature: No vascular abnormality is present. Bones: Bone windows demonstrate no suspicious lytic or blastic lesions. The visible osseous structures are intact. Soft tissues: Normal. Impression: 1.Periportal edema, nonspecific. 2.Mildly edematous appearance of the adjacent gallbladder wall without intraluminal stones, possibly secondary to overall venous congestiongiven periportal edema. If there is concern for cholecystitis, consider right upper quadrant ultrasound. > Dictated by Dhruv Rascon MD (chairman president and chief executive officer). I, Tarun Andersen MD have personally reviewed and interpreted this examination/study. > Interpreting Provider: Tarun Andersen MD on 12/06/2024 1:50 AM Arnulfo Hurley MD CT ORDERABLES Final Resu lt * TRICHOMONAS VAGINALIS KASSIDY (12/05/2024 9:14 PM CDT) Trichomonas by KASSIDY NEGATIVE NEGATIVE 12/06/2024 5:52 AM CDT [facility] MICROBIOLOGY Microbiology URINE / Unknown Collection / Unknown 12/05/2024 9:14 PM CDT 12/05/2024 9:19 PM CDT Arnulfo Hurley MD LAB - MICROBIOLOGY ORDERAB LES Final Result [facility] MICROBIOLOGY [address] [place] [address], [place] [phone] * CHLAMYDIA AND N. GONORRHOEAE KASSIDY (12/05/2024 9:14 PM CDT) Chlamydia by KASSIDY NEGATIVE NEGATIVE 12/06/2024 5:52 AM CDT [facility] MICROBIOLOGY Neisseria gonorrhoeae KASSIDY NEGATIVE NEGATIVE 12/06/2024 5:52 AM CDT [facility] MICROBIOLOGY Microbiology URINE / Unknown Collection / Unknown 12/05/2024 9:14 PM CDT 12/05/2024 9:19 PM CDT Arnulfo Hurley MD LAB - MICROBIOLOGY ORDERAB LES Final Result [facility] MICROBIOLOGY [address] [place] [address], [place] [phone] * (ABNORMAL) URINALYSIS W/MICROSCOPIC REFLEX TO CULTURE (12/05/2024 7:46 PM CDT) Color UA Yellow Yellow, Straw 12/05/2024 8:13 PM [facility] Clarity UA Clear Clear 12/05/2024 8:13 PM [facility] Glucose UA 1+(A) Normal 12/05/2024 8:13 PM [facility] Bilirubin UA Negative Negative 12/05/2024 8:13 PM [facility] Ketone UA 4+(A) Negative 12/05/2024 8:13 PM [facility] Specific Victor UA 1.032(H) 1.005 - 1.030 12/05/2024 8:13 PM [facility] Blood UA 1+(A) Negative 12/05/2024 8:13 PM [facility] pH UA 6.5 5.0 - 8.0 pH 12/05/2024 8:13 PM [facility] Protein UA 2+(A) Negative 12/05/2024 8:13 PM [facility] Urobilinogen UA 2.0(A) Normal mg/dL 025 8:13 PM [facility] Nitrite UA Negative Negative 12/05/2024 8:13 PM [facility] Leukocyte Esterase UA Negative Negative 12/05/2024 8:13 PM [facility] RBC UA 6-10(A) 0 - 5 # /hpf 12/05/2024 8:13 PM [facility] WBC UA 0-5 0 - 5 # /hpf 12/05/2024 8:13 PM [facility] Bacteria UA None Seen None Seen 12/05/2024 8:13 PM [facility] Squamous Epithelial Cells None Seen 0 - 5 /hpf 12/05/2024 8:13 PM [facility] Mucus UA 3+ /LPF 12/05/2024 8:13 PM [facility] Urine URINE SPECIMEN OBTAINED BY CLEAN CATCH PROCEDURE / Unknown Collection / Unknown 12/05/2024 7:46 PM CDT 12/05/2024 7:48 PM T us Delicia Dueñas PA-C LAB - URINALYSIS ORDERABLES F inal Result [facility] [address] [place] [address], [place] [phone] * (ABNORMAL) CBC W AUTO DIFFERENTIAL (12/05/2024 5:16 PM CDT) WBC 10.7 4.0 - 10.7 x10E9/L 12/05/2024 7:36 PM T [facility] RBC Count 4.23 3.90 - 5.20 x10E12/L 12/05/2024 7:36 PM [facility] Hemoglobin 12.6 11.9 - 15.8 g/dL 12/05/2024 7:36 PM [facility] Hematocrit 37.1 34.8 - 46.1 % 12/05/2024 7:36 PM [facility] MCV 87.7 80.0 - 98.0 fL 12/05/2024 7:36 PM [facility] MCH 29.8 26.7 - 33.6 pg 12/05/2024 7:36 PM [facility] MCHC 34.0 31.7 - 36.3 g/dL 12/05/2024 7:36 PM [facility] RDW-CV 12.8 11.3 - 14.8 % 12/05/2024 7:36 PM [facility] Platelet Count 12/05/2024 7:36 PM [facility] Comment:Platelets clumped on slide but appears adequate. Recommend repeat with a sodium citrate blue top tube. MPV 12/05/2024 7:36 PM [facility] Comment:Unable to report Neutrophil % 93.5(H) 41.0 - 74.0 % 12/05/2024 7:36 PM [facility] Lymphocyte % 3.6(L) 17.0 - 47.0 % 12/05/2024 7:36 PM [facility] Monocyte % 2.3(L) 3.0 - 11.0 % 12/05/2024 7:36 PM [facility] Eosinophil % 0.1 0.0 - 7.0 % 12/05/2024 7:36 PM T [facility] Basophil % 0.1 0.0 - 1.6 % 12/05/2024 7:36 PM T [facility] Immature Granulocytes % 0.4 0.0 - 1.0 % 12/05/2024 7:36 PM [facility] Neutrophil Absolute 9.98(H) 1.60 - 7.50 x10E9/L 12/05/2024 7:36 PM T [facility] Lymphocyte Absolute 0.38(L) 1.00 - 4.40 x10E9/L 12/05/2024 7:36 PM [facility] Monocyte Absolute 0.24 0.15 - 1.00 x10E9/L 12/05/2024 7:36 PM [facility] Eosinophil Absolute 0.01 0.00 - 0.60 x10E9/L 12/05/2024 7:36 PM [facility] Basophil Absolute 0.01 0.00 - 0.13 x10E9/L 12/05/2024 7:36 PM [facility] Blood BLOOD SPECIMEN / Unknown Venipuncture / Unknown 12/05/2024 5:16 PM CDT 12/05/2024 5:45 PM CDT us Delicia Dueñas PA-C LAB - HEMATOLOGY ORDERABLES F inal Result [facility] [address] [place] [address], [place] [phone] * (ABNORMAL) COMPREHENSIVE METABOLIC PANEL (12/05/2024 5:16 PM CDT) BUN 13 7 - 26 mg/dL 12/05/2024 6:11 PM [facility] Creatinine 0.47(L) 0.56 - 0.96 mg/dL 12/05/2024 6:11 PM [facility] Sodium 136 136 - 145 mmol/L 12/05/2024 6:11 PM [facility] Potassium 3.5 3.5 - 4.5 mmol/L 12/05/2024 6:11 PM [facility] Chloride 105 98 - 107 mmol/L 12/05/2024 6:11 PM [facility] CO2 14(L) 22 - 29 mmol/L 12/05/2024 6:11 PM [facility] Glucose 157(H) 70 - 99 mg/dL 12/05/2024 6:11 PM [facility] Calcium 9.7 8.4 - 10.2 mg/dL 12/05/2024 6:11 PM [facility] Protein Total 8.1 6.0 - 8.3 g/dL 12/05/2024 6:11 PM [facility] Albumin 4.9 3.4 - 5.0 g/dL 12/05/2024 6:11 PM [facility] Bilirubin Total 1.3(H) 0.2 - 1.2 mg/dL 12/05/2024 6:11 PM [facility] Alkaline Phosphatase 48 40 - 150 U/L 12/05/2024 6:11 PM [facility] ALT 15 5 - 55 U/L 12/05/2024 6:11 PM [facility] AST 22 5 - 34 U/L 12/05/2024 6:11 PM [facility] Anion Gap 17(H) 6 - 16 12/05/2024 6:11 PM [facility] BUN/Creatinine Ratio 28(H) 7 - 23 12/05/2024 6:11 PM [facility] Osmolality Calculated 285 275 - 295 mOsm/kg 12/05/2024 6:11 PM [facility] Albumin/Globulin Ratio 1.5 1.1 - 2.3 12/05/2024 6:11 PM [facility] eGFR by CKD-EPI >90 >=90 mL/min/1.7 3 m2 12/05/2024 6:11 PM [facility] Blood BLOOD SPECIMEN / Unknown Venipuncture / Unknown 12/05/2024 5:16 PM CDT 12/05/2024 5:32 PM T us Delicia Wahler PA-C LAB - CHEMISTRY ORDERABLES Fi nal Result Performing Organization Address City/[facility]/ZIP Co de Phone Number [address] [address], [place] [phone] * HCG BETA BLOOD QUANTITATIVE (12/05/2024 5:16 PM CDT) [facility] Beta-hCG Total Quantitative <3 mIU/mL 12/05/2024 6:17 PM CDT [facility] Comment: HCG Numeric Result Interpretation: Non- Females: < 5 mIU/mL Post-Menopausal Females: < 7 mIU/mL This assay is cleared for use in the early detection of only. It is not approved for any other uses such as tumor marker screening, tumor marker monitoring, etc. and should not be used for any other purposes. Blood BLOOD SPECIMEN / Unknown Venipuncture / Unknown 12/05/2024 5:16 PM CDT 12/05/2024 5:32 PM CDT Delicia Dueñas PA-C LAB - CHEMISTRY ORDERABLES Fi nal Result Performing Organization Address [facility]/ZIP Co de Phone Number [address] [address], [place] [phone] * (ABNORMAL) LIPASE BLOOD (12/05/2024 5:16 PM CDT) [facility] Lipase 7(L) 8 - 78 U/L 12/05/2024 6:11 PM CDT [facility] Blood BLOOD SPECIMEN / Unknown Venipuncture / Unknown 12/05/2024 5:16 PM CDT 12/05/2024 5:32 PM CDT Narrative [facility] - 12/05/2024 6:11 PM CDT Lipase results from the [employer] analyzer may not be comparable with other methodologies. Delicia KHANC LAB - CHEMISTRY ORDERABLES Fi nal Result Performing Organization Address City/[facility]/ZIP Co de Phone Number [address] [address], [place] [phone] from Last 3 Months Insurance [facility] [employer] Liability Advance Directives * Full Code (Latest Code Status on File) Date Activated Date Inactivated Comments 12/06/2024 8:59 AM 12/13/2024 4:56 PM Care Teams Administrative Assistant Front Desk Relationship Specialty Start Date End Date Krick, Yoselyn, MD [address] [address] PCP - Attributed-[employer] [facility] 11/30/23
[2025-02-21 14:41] VITALS: BP 151/87; PULSE 64; RESP 18; TEMP 36.6; O2SAT 100
--- NOTE | 2025-02-21 14:42 | ED_ITS ---
HPI - Abdominal Pain General Chief Complaint: Abdominal Pain <DAMON Schaefer Last Filed: 02/22/25 17:40> Stated Complaint: Abdominal pain, nausea and vomiting <DAMON Schaefer Last Filed: 02/22/25 17:40> Time Seen by Provider: 02/21/25 14:42 <DAMON Schaefer Last Filed: 02/22/25 17:40> Focused HPI: This is a 30 year old female that presents to the ER for abdominal pain, nausea and vomiting. Ongoing since this morning. Reports she has not been able to keep much down. GENERAL: Uncomfortable, well-nourished, and in no acute distress. HEAD: Normocephalic, atraumatic. CHEST: Clear to auscultation. ?No respiratory distress. HEART: Regular rate and rhythm.? NEURO: ?Alert and oriented x3. Patient screened in triage and initial orders placed.? ?Additional care and disposition to be based upon?diagnostic testing and treatment. <Noemi Fu PA-C - Last Filed: 02/22/25 17:40> History of Present Illness HPI narrative: Agree with the above HPI. Patient states this morning she developed lower abdominal pain, nausea, vomiting and diarrhea. She denies fever, dysuria or hematuria, vaginal discharge or concern for STDs. No prior abdominal surgeries. Patient states she had similar symptoms a few months ago and was evaluated at [facility] and told she had a urinary tract infection. She denies any urinary symptoms. When asked if anything makes her symptoms better or worse, the patient states ?pain meds?. She states when she was at [facility] a couple months ago for similar presentation she was given morphine and fentanyl which improved her symptoms. Patient denies drug or alcohol use including cannabis use. <DAMON Byrne Last Filed: 02/21/25 22:48> Related Data Allergies/Adverse Reactions: Allergies Allergy/AdvReac Type Severity Reaction Status Date / Time No Known Allergies Allergy Verified 02/21/25 18:56 <DAMON Schaefer Last Filed: 02/22/25 17:40> Review of Systems 2 Review of Systems: All systems reviewed & are unremarkable except as noted in HPI and below <Eulalia Kaminski PA-C - Last Filed: 02/21/25 22:48> PMFSH Social History Social History: Social History Gender identity (if verbalized by the patient): Female <Noemi Fu PA-C - Last Filed: 02/22/25 17:40> Exam 2 Narrative: GENERAL: Well-appearing, well-nourished, and in no acute distress. HEAD: Normocephalic, atraumatic. EYES: EOMI. ENT: Nares clear, no rhinorrhea or epistaxis. Mucous membranes moist. NECK: Supple. CHEST: Clear to auscultation. No respiratory distress. HEART: Regular rate and rhythm. No murmur heard. Normal peripheral pulses. ABDOMEN: Normoactive bowel sounds. Diffuse lower abdominal tenderness without rebound, guarding or rigidity. No significant CVA tenderness EXTREMITIES: Normal range of motion. No edema. SKIN: Warm, dry, no rash. NEURO: No focal deficits. Alert and oriented x3 <Eulalia Kaminski PA-C - Last Filed: 02/21/25 22:48> Course Vital Signs Vital signs: Vital Signs Temperature 98 F 02/21/25 14:41 Pulse Rate 64 02/21/25 14:41 Respiratory Rate 18 02/21/25 14:41 Blood Pressure 151/87 H 02/21/25 14:41 Pulse Oximetry 100 02/21/25 14:41 Oxygen Delivery Room Air 02/21/25 14:41 Temperature 98 F 02/21/25 14:41 Pulse Rate 67 02/21/25 23:09 Respiratory Rate 16 02/21/25 23:09 Blood Pressure 146/80 H 02/21/25 23:09 Pulse Oximetry 99 02/21/25 23:09 Oxygen Delivery Room Air 02/21/25 14:41 <Noemi Fu PA-C - Last Filed: 02/22/25 17:40> Vital Signs Temperature 98 F 02/21/25 14:41 Pulse Rate 64 02/21/25 14:41 Respiratory Rate 18 02/21/25 14:41 Blood Pressure 151/87 H 02/21/25 14:41 Pulse Oximetry 100 02/21/25 14:41 Oxygen Delivery Room Air 02/21/25 14:41 Temperature 98 F 02/21/25 14:41 Pulse Rate 67 02/21/25 23:09 Respiratory Rate 16 02/21/25 23:09 Blood Pressure 146/80 H 02/21/25 23:09 Pulse Oximetry 99 02/21/25 23:09 Oxygen Delivery Room Air 02/21/25 14:41 <Eulalia Kaminski PA-C - Last Filed: 02/21/25 22:48> MDM - Abdominal Pain MDM Narrative Medical decision making narrative: 30-year-old female presents emergency department for 1 day of lower abdominal pain, nausea, vomiting and diarrhea. Vitals with elevated blood pressure 151/87, otherwise unremarkable. Patient is afebrile and nontoxic appearing. Exam is notable for the above. CBC with leukocytosis of 11.4, possibly reactive due to vomiting. Hemoglobin is 11.4, most recent hemoglobin in 2019 was 10.7. Chemistries with evidence of dehydration with a bicarb of 16 and anion gap of 18. Renal function and LFTs are within normal limits. UA with ketonuria, no UTI. is negative. Urine drug screen is positive for cannabinoids. Lipase is normal. CT abdomen pelvis shows no acute intra-abdominal or pelvic process. Pelvic ultrasound obtained to rule out ovarian torsion which shows normal vascular flow to both ovaries. Patient received 2 L of fluids, Zofran, Toradol, Bentyl and Tylenol for symptomatic control. Patient was found to be resting comfortably in her exam bed, however would repeatedly walk out of her room to ask nursing staff and myself for stronger pain medications. Patient was repeatedly asking for medications by name. I am concerned for drug-seeking behavior. At this time her presentation is most consistent with gastroenteritis vs cannibinoid hyperemesis syndrome. She is tolerating po intake. The patient was instructed to refrain from cannabis use. Will send Zofran and bentyl to the pharmacy. Encouraged increased fluid intake, BRAT diet and follow-up with PCP. Discussed strict ED return precautions. She is agreeable with the plan verbalized understanding. Discharged in stable condition. <Eulalia Kaminski PA-C - Last Filed: 02/21/25 22:48> Lab Data Result diagrams: 02/21/25 15:10 02/21/25 15:10 <Noemi Fu PA-C - Last Filed: 02/22/25 17:40> Labs: Lab Results 02/21/25 02/21/25 Range/Units 15:10 18:29 WBC 11.4 H (4.5-10.0) K/mm3 RBC 3.91 L (4.2-5.4) M/mm3 Hgb 11.4 L (12.0-15.0) g/dL Hct 35.1 L (37.0-47.0) % MCV 89.8 (80-100) fl MCH 29.2 (26-34) pg MCHC 32.5 (32-36) g/dl RDW 12.5 (11.5-14.5) % Plt Count 323 (150-375) k/mm3 MPV 10.0 (7.4-10.4) fl Immature Gran % (Auto) 0.2 (0-0.5) % Neut % (Auto) 92.8 H (45.5-73.1) % Lymph % (Auto) 4.6 L (18.3-44.2) % [place] % (Auto) 2.3 L (2.6-8.5) % Eos % (Auto) 0.0 (0-4.4) % Baso % (Auto) 0.1 L (0.2-1.2) % Lymph # (Auto) 0.52 L (0.9-3.2) K/mm3 [place] # (Auto) 0.3 (0.1-0.6) K/mm3 Eos # (Auto) 0.0 (0-0.3) K/mm3 Baso # (Auto) 0.0 (0.0-0.1) K/mm3 Abs Immat Gran (auto) 0.02 (0.00-0.031) K/mm3 Absolute Neuts (auto) 10.6 H (1.3-6.7) K/mm3 Absolute Nucleated RBC 0.000 (0.0-0.012) K/mm3 Nucleated RBC % 0.0 (0.0-0.2) % Sodium 138 (137-145) mmol/L Potassium 3.7 (3.4-5.0) mmol/L Chloride 104 (98-107) mmol/L Carbon Dioxide 16 L (22-30) mmol/L Anion Gap 18 H (4-12) mmol/L BUN 13 (7-17) mg/dL Creatinine 0.53 L (0.7-1.0) mg/dL Estim Creat Clear Calc 102 ml/min Estimated GFR > 60 (59 - ) Glucose 148 H (65-110) mg/dL Calcium 9.6 (8.4-10.2) mg/dL Total Bilirubin 1.3 (0.2-1.3) mg/dL AST 35 (14-36) U/L ALT 25 (6-35) U/L Alkaline Phosphatase 56 (38-126) U/L Total Protein 8.3 H (6.3-8.2) g/dL Albumin 4.8 (3.5-5.1) g/dL Lipase 26 (23-300) U/L Urine Color Yellow (Yellow) Urine Appearance Clear (Clear) Urine pH 8.5 (5.0-9.0) Ur Specific [place] 1.023 (1.001-1.035) Urine Protein 1+ H (Negative) mg/dL Urine Glucose (UA) Negative (Negative) mg/dL Urine Ketones 4+ H (Negative) mg/dL Ur Blood (Man) Negative (Negative) Urine Nitrate Negative (Negative) Urine Bilirubin Negative (Negative) Urine Urobilinogen 1.0 (<2.0) mg/dL Leukocyte Esterase Rfl Negative (Negative) LARA/UL Urine RBC 0-2 (0-2) /hpf Urine WBC 0-5 (0-3) /hpf Ur Squamous Epith Cells None seen (Few) /hpf Urine Bacteria None seen /hpf Urine Casts 0-2 POC Urine HCG, Qual Negative (Negative) Urine Test Negative Urine Opiates Screen Negative (Negative) Urine Methadone Screen Negative (Negative) Ur Barbiturates Screen Negative (Negative) Ur Phencyclidine Scrn Negative (Negative) Ur Amphetamine Screen Negative (Negative) U Benzodiazepines Scrn Negative (Negative) Urine Cocaine Screen Negative (Negative) U Cannabinoids Screen Positive A (Negative) <Noemi Fu PA-C - Last Filed: 02/22/25 17:40> Lab Results 02/21/25 02/21/25 Range/Units 15:10 18:29 WBC 11.4 H (4.5-10.0) K/mm3 RBC 3.91 L (4.2-5.4) M/mm3 Hgb 11.4 L (12.0-15.0) g/dL Hct 35.1 L (37.0-47.0) % MCV 89.8 (80-100) fl MCH 29.2 (26-34) pg MCHC 32.5 (32-36) g/dl RDW 12.5 (11.5-14.5) % Plt Count 323 (150-375) k/mm3 MPV 10.0 (7.4-10.4) fl Immature Gran % (Auto) 0.2 (0-0.5) % Neut % (Auto) 92.8 H (45.5-73.1) % Lymph % (Auto) 4.6 L (18.3-44.2) % [place] % (Auto) 2.3 L (2.6-8.5) % Eos % (Auto) 0.0 (0-4.4) % Baso % (Auto) 0.1 L (0.2-1.2) % Lymph # (Auto) 0.52 L (0.9-3.2) K/mm3 [place] # (Auto) 0.3 (0.1-0.6) K/mm3 Eos # (Auto) 0.0 (0-0.3) K/mm3 Baso # (Auto) 0.0 (0.0-0.1) K/mm3 Abs Immat Gran (auto) 0.02 (0.00-0.031) K/mm3 Absolute Neuts (auto) 10.6 H (1.3-6.7) K/mm3 Absolute Nucleated RBC 0.000 (0.0-0.012) K/mm3 Nucleated RBC % 0.0 (0.0-0.2) % Sodium 138 (137-145) mmol/L Potassium 3.7 (3.4-5.0) mmol/L Chloride 104 (98-107) mmol/L Carbon Dioxide 16 L (22-30) mmol/L Anion Gap 18 H (4-12) mmol/L BUN 13 (7-17) mg/dL Creatinine 0.53 L (0.7-1.0) mg/dL Estim Creat Clear Calc 102 ml/min Estimated GFR > 60 (59 - ) Glucose 148 H (65-110) mg/dL Calcium 9.6 (8.4-10.2) mg/dL Total Bilirubin 1.3 (0.2-1.3) mg/dL AST 35 (14-36) U/L ALT 25 (6-35) U/L Alkaline Phosphatase 56 (38-126) U/L Total Protein 8.3 H (6.3-8.2) g/dL Albumin 4.8 (3.5-5.1) g/dL Lipase 26 (23-300) U/L Urine Color Yellow (Yellow) Urine Appearance Clear (Clear) Urine pH 8.5 (5.0-9.0) Ur Specific [place] 1.023 (1.001-1.035) Urine Protein 1+ H (Negative) mg/dL Urine Glucose (UA) Negative (Negative) mg/dL Urine Ketones 4+ H (Negative) mg/dL Ur Blood (Man) Negative (Negative) Urine Nitrate Negative (Negative) Urine Bilirubin Negative (Negative) Urine Urobilinogen 1.0 (<2.0) mg/dL Leukocyte Esterase Rfl Negative (Negative) LARA/UL Urine RBC 0-2 (0-2) /hpf Urine WBC 0-5 (0-3) /hpf Ur Squamous Epith Cells None seen (Few) /hpf Urine Bacteria None seen /hpf Urine Casts 0-2 POC Urine HCG, Qual Negative (Negative) Urine Test Negative Urine Opiates Screen Negative (Negative) Urine Methadone Screen Negative (Negative) Ur Barbiturates Screen Negative (Negative) Ur Phencyclidine Scrn Negative (Negative) Ur Amphetamine Screen Negative (Negative) U Benzodiazepines Scrn Negative (Negative) Urine Cocaine Screen Negative (Negative) U Cannabinoids Screen Positive A (Negative) <Eulalia Kaminski PA-C - Last Filed: 02/21/25 22:48> Imaging Data Radiologist's impression: ITS Impressions Abdomen/Pelvis CT 02/21/25 19:12 IMPRESSION: 1. No acute intra-abdominal/pelvic process. Pelvic/Transvag US 02/21/25 22:26 IMPRESSION: 1. Normal vascular flow identified in both ovaries.. <Noemi Fu PA-C - Last Filed: 02/22/25 17:40> ITS Impressions Abdomen/Pelvis CT 02/21/25 19:12 IMPRESSION: 1. No acute intra-abdominal/pelvic process. Pelvic/Transvag US 02/21/25 22:26 IMPRESSION: 1. Normal vascular flow identified in both ovaries.. <DAMON Byrne Last Filed: 02/21/25 22:48> Critical Care Time Critical Care Time Critical Care Time: No <DAMON Schaefer Last Filed: 02/22/25 17:40> Discharge Plan Discharge Clinical Impression: Gastroenteritis <DAMON Schaefer Last Filed: 02/22/25 17:40> Patient Disposition: Home <DAMON Schaefer Last Filed: 02/22/25 17:40> Condition: Stable <DAMON Schaefer Last Filed: 02/22/25 17:40> Instructions: Antibiotic Form, Acute Nausea and Vomiting (DC), Abdominal Pain (ED) <DAMON Schaefer Last Filed: 02/22/25 17:40> Additional Instructions: Please make sure to drink plenty fluids including water, Gatorade and Pedialyte. Eat a bland diet including bananas, rice, applesauce and toast. Refrain from marijuana use as this will worsen your symptoms. Take ondansetron as needed for nausea and vomiting. Follow-up closely with her primary care provider. Return to the emergency department if you develop a fever, you are unable to tolerate food or fluids, you develop significantly worsening or changing pain, or other concerning symptoms. <DAMON Schaefer Last Filed: 02/22/25 17:40> Patient Language: Greenlandic <DAMON Schaefer Last Filed: 02/22/25 17:40> Prescriptions: New ondansetron 4 mg tablet,disintegrating 4 mg PO Q8H Qty: 14 0RF dicyclomine 20 mg tablet 20 mg PO BID Qty: 14 0RF <DAMON Schaefer Last Filed: 02/22/25 17:40> Follow-up/Referrals: PHYSICIAN,ROBOTIC WELDER [Primary Care Provider] - Laura Cosme DO [Physician] - <DAMON Schaefer Last Filed: 02/22/25 17:40>
[2025-02-21 15:24] LABS: Hematocrit 35.1 % (37.0-47.0); Hemoglobin 11.4 g/dL (12.0-15.0); Immature Granulocyte Percent A 0.2 % (0-0.5); Lymphocytes Absolute Auto 0.52 K/mm3 (0.9-3.2); Mean Corpuscular HGB Conc 32.5 g/dl (32-36); Mean Corpuscular Hemoglobin 29.2 pg (26-34); Mean Corpuscular Volume 89.8 fl (80-100); Nucleated Red Blood Cells Absolute Auto 0.000 K/mm3 (0.0-0.012); Nucleated Red Blood Cells Perc 0.0 % (0.0-0.2); Platelet Count Result 323 k/mm3 (150-375); Red Blood Count 3.91 M/mm3 (4.2-5.4); White Blood Count 11.4 K/mm3 (4.5-10.0)
[2025-02-21 15:27] LABS: Add Urine Microscopic? YES; Appearance Urine Clear (Clear); Glucose Urine UA Negative (Negative); Leukocyte Esterase Ur Negative LEU/UL (Negative); Nitrate Urine Negative (Negative); Non Pathogenic Casts 0-2; Specific Grav Ur 1.023 (1.001-1.035)
[2025-02-21 15:37] LABS: Alanine Aminotransferase 25 U/L (6-35); Albumin Level 4.8 g/dL (3.5-5.1); Alkaline Phosphatase 56 U/L (38-126); Anion Gap 18 mmol/L (4-12); Aspartate Amino Transferase 35 U/L (14-36); Bilirubin,Total 1.3 mg/dL (0.2-1.3); Blood Urea Nitrogen 13 mg/dL (7-17); Calcium 9.6 mg/dL (8.4-10.2); Carbon Dioxide 16 mmol/L (22-30); Chloride 104 mmol/L (98-107); Estimated CRCL calculation 102 ml/min; Estimated Glomerular Filt Rate > 60; Glucose 148 mg/dL (65-110); Lipase 26 U/L (23-300); Potassium 3.7 mmol/L (3.4-5.0); Sodium 138 mmol/L (137-145); Total Protein 8.3 g/dL (6.3-8.2)
--- NOTE | 2025-02-21 15:52 | PC.NURSE ---
Patient presents to intake desk and states I am in pain. Can I call an ambulance to take me to another hospital?. Patient informed that even if she was to call 911, an ambulance would not transport her from our ER to another ER. Patient then ambulated back to waiting room.
[2025-02-21] MEDS: ONDANSETRON HCL ODT 4 MG TABLET PO (15:59)
--- NOTE | 2025-02-21 16:45 | PC.NURSE ---
Patient presents to desk again stating she is in pain. This RN explained that i am unable to give any PO meds due to her vomiting and IV meds have to wait until she is in a room. Patient then ambulated outside with steady gate
[2025-02-21 16:52] LABS: Cannabinoid Screen Urine Positive (Negative)
[2025-02-21 17:48] VITALS: BP 123/103
--- OUTSIDE RECORDS SUMMARY | 2025-02-21 18:04 | XMS_ITS | Clinical Summary ---
Author Organization [facility] Address [address] [place] [address] Care Team Providers Care Canoe Inspector Final Name Role Phone Chayo Kee QUANGMal Primary Care Provider [phone] Allergies No known active allergies Social History [...] age to complete this topic Care Teams Canoe Inspector Final Relationship Specialty Start Date End Date Chayo Kee CNM [address] [place] [address] PCP - General [employer] SUPER[employer]OR 05/26/19
--- OUTSIDE RECORDS SUMMARY | 2025-02-21 18:05 | XMS_ITS | Clinical Summary ---
Author Organization [facility] Address [address] [place] [address] Care Team Providers Care Public Service Director Name Role Phone Yoselyn Judge MD Unavailable [phone] Source Comments [facility],non-owned Affiliates and Associated Physician Practices is amultiple site organization consisting of ambulatory clinics and hospital sitesin [place], [place], [place] and [place]. This disclosure is being madepursuant to the Care Everywhere program and may not contain all information available regarding this patient. Last updated [email or web address] [facility] Allergies No known active allergies Medications * [...] Department Care Team Description 12/18/2024 Transitional Care [facility] - Care Coordination [address] [place] [address] Zohreh Colby MSW Transitional Care 12/17/2024 Transitional Care [facility] - Care Coordination [address] [place] [address] Zohreh Colby MSW Transitional Care 12/17/2024 Telephone Transitional Care at [address] [phone] Jazmyne Mtz, DEWEY Missed Appointment 12/14/2024 Telephone Transitional Care at [address] [phone] Zaria Ang, box toe stitcher 12/14/2024 Transitional Care [facility] - Care Coordination [address] [place] [phone] Zohreh Colby MSW Transitional Care 12/05/2024 7:22 PM CDT - 12/13/2024 3:50 PM CDT Hospital Encounter [facility] [address] [place] [address] Arnulfo Hurley MD Fite, MD Molly Celestin [...] care, and heating? Not very hard 12/08/2024 [facility] [place] of Occupat ional Health - Occupational Stress [...] any time in the past 12 m [facility], were you homeless or living in a longterm (including now)? No 12/08/2024 Comments No Sex [...] 4.0 - 10.7 x10E9/L 12/12/2024 1:37 AM [facility] RBC Count 3.83(L) 3.90 - 5.20 x10E12/L 12/12/2024 1:37 AM [facility] Hemoglobin 11.2(L) 11.9 - 15.8 g/dL 12/12/2024 1:37 AM [facility] Hematocrit 33.1(L) 34.8 - 46.1 % 12/12/2024 1:37 AM [facility] MCV 86.4 80.0 - 98.0 fL 12/12/2024 1:37 AM [facility] MCH 29.2 26.7 - 33.6 pg 12/12/2024 1:37 AM [facility] MCHC 33.8 31.7 - 36.3 g/dL 12/12/2024 1:37 AM [facility] RDW-CV 12.4 11.3 - 14.8 % 12/12/2024 1:37 AM [facility] Platelet Count 254 150 - 420 x10E9/L 12/12/2024 1:37 AM [facility] MPV 9.7 7.8 - 11.4 fL 12/12/2024 1:37 AM [facility] Blood BLOOD SPECIMEN / Unknown Lab Venipuncture / Unknown 12/12/2024 1:07 AM CDT 12/12/2024 1:30 AM CDT us Saurav Rodriguez DO LAB - HEMATOLOGY ORDERABLES Fin al Result [facility] [address] [place] [address], [facility] [phone] * (ABNORMAL) RENAL FUNCTION PANEL (12/12/2024 1:07 AM [facility]) Only the most recent of4 resultswithin the time period is included. BUN 10 7 - 26 mg/dL 12/12/2024 2:09 AM [facility] Creatinine 0.56 0.56 - 0.96 mg/dL 12/12/2024 2:09 AM [facility] Sodium 137 136 - 145 mmol/L 12/12/2024 2:09 AM [facility] Potassium 3.7 3.5 - 4.5 mmol/L 12/12/2024 2:09 AM [facility] Chloride 103 98 - 107 mmol/L 12/12/2024 2:09 AM [facility] CO2 24 22 - 29 mmol/L 12/12/2024 2:09 AM [facility] Glucose 103(H) 70 - 99 mg/dL 12/12/2024 2:09 AM [facility] Albumin 3.7 3.4 - 5.0 g/dL 12/12/2024 2:09 AM [facility] Calcium 8.8 8.4 - 10.2 mg/dL 12/12/2024 2:09 AM [facility] Phosphorus 3.8 2.9 - 5.1 mg/dL 12/12/2024 2:09 AM [facility] Anion Gap 10 6 - 16 12/12/2024 2:09 AM [facility] BUN/Creatinine Ratio 18 7 - 23 12/12/2024 2:09 AM [facility] Osmolality Calculated 283 275 - 295 mOsm/kg 12/12/2024 2:09 AM [facility] eGFR by CKD-EPI >90 >=90 mL/min/1.7 3 m2 12/12/2024 2:09 AM [facility] Blood BLOOD SPECIMEN / Unknown Lab Venipuncture / Unknown 12/12/2024 1:07 AM CDT 12/12/2024 1:29 AM T us Saurav Rodriguez DO LAB - CHEMISTRY ORDERABLES Annalisa l Result [facility] [address] [place] [address], [facility] [phone] * (ABNORMAL) BASIC METABOLIC PANEL (CALCIUM TOTAL) (12/08/2024 12:12 PM CDT) Only the most recent of2 resultswithin the time period is included. BUN 8 7 - 26 mg/dL 12/08/2024 1:27 PM [facility] Creatinine 0.55(L) 0.56 - 0.96 mg/dL 12/08/2024 1:27 PM [facility] Sodium 137 136 - 145 mmol/L 12/08/2024 1:27 PM [facility] Potassium 3.8 3.5 - 4.5 mmol/L 12/08/2024 1:27 PM [facility] Chloride 107 98 - 107 mmol/L 12/08/2024 1:27 PM [facility] CO2 19(L) 22 - 29 mmol/L 12/08/2024 1:27 PM [facility] Glucose 97 70 - 99 mg/dL 12/08/2024 1:27 PM [facility] Calcium 8.6 8.4 - 10.2 mg/dL 12/08/2024 1:27 PM [facility] Anion Gap 11 6 - 16 12/08/2024 1:27 PM [facility] BUN/Creatinine Ratio 15 7 - 23 12/08/2024 1:27 PM [facility] Osmolality Calculated 282 275 - 295 mOsm/kg 12/08/2024 1:27 PM [facility] eGFR by CKD-EPI >90 >=90 mL/min/1.7 3 m2 12/08/2024 1:27 PM [facility] Blood BLOOD SPECIMEN / Unknown Lab Venipuncture / Unknown 12/08/2024 12:12 PM CDT 12/08/2024 1:02 PM CDT Saurav Rodriguez DO LAB - CHEMISTRY ORDERABLES Annalisa l Result [facility] [address] [place] [address], [facility] [phone] * XR Abdomen Kub Portable (12/07/2024 5:57 AM CDT) Anatomical Region Laterality Modality Abdomen Digital Radiogra phy 12/07/2024 9:15 AM CDT Impressions 12/07/2024 10:51 AM CDT IMPRESSION: Non-obstructive bowel gas pattern. > Dictated by Garrison Landaverde DO (Skiagrapher), 12/07/2024 9:16 AM. Jacquelin Mahmood MD have personally reviewed and interpreted this examination/study. > Interpreting Provider: Jacquelin Tran MD on 12/07/2024 10:51 AM Narrative 12/07/2024 10:51 AM CDT PROCEDURE: XR ABDOMEN KUB PORTABLE, DATE/TIME OF EXAM: 12/07/2024 5:57 AM, LOCATION [facility] INDICATION: R10.9: Abdominal pain, unspecified abdominal location [...] PORTABLE, DATE/TIME OF EXAM: 12/07/2024 5:57AM, LOCATION [facility] INDICATION: R10.9: Abdominal pain, unspecified abdominal location [...] pattern. > Dictated by Garrison Landaverde DO (Skiagrapher), 12/07/2024 9:16 AM. I, Jacquelin Tran MD have personally reviewed and interpreted this examination/study. > Interpreting Provider: Jacquelin Tran MD on 12/07/2024 10:51 AM Brenden Barnes MD DIAGNOSTIC IMAGING ORDERABLE S Final Result * PHOSPHORUS BLOOD (12/07/2024 12:43 AM CDT) Phosphorus 3.0 2.9 - 5.1 mg/dL 12/07/2024 1:19 AM CDT [facility] Blood BLOOD SPECIMEN / Unknown Lab Venipuncture / Unknown 12/07/2024 12:43 AM CDT 12/07/2024 12:53 AM CDT Sharon Duggan MD LAB - CHEMISTRY ORDERABLES Fi nal Result Performing Organization Address City/[facility]/ZIP Co de Phone Number [address] [address], [facility] [phone] * MAGNESIUM BLOOD (12/07/2024 12:43 AM CDT) Magnesium 1.9 1.6 - 2.6 mg/dL 12/07/2024 1:19 AM CDT [facility] Blood BLOOD SPECIMEN / Unknown Lab Venipuncture / Unknown 12/07/2024 12:43 AM CDT 12/07/2024 12:53 AM CDT Sharon Duggan MD LAB - CHEMISTRY ORDERABLES Fi nal Result [address] [address], [facility] [phone] * (ABNORMAL) HYDROXYBUTYRATE BETA (12/06/2024 1:03 PM CDT) Beta-Hydroxybu tyrate 0.79(H) <0.50 mmol/L 12/06/2024 1:40 PM CDT [facility] Blood BLOOD SPECIMEN / Unknown Lab Venipuncture / Unknown 12/06/2024 1:03 PM CDT 12/06/2024 1:16 PM CDT us Sharon Duggan MD LAB - CHEMISTRY ORDERABLES Fi nal Result [address] [address], [place] [phone] * LACTIC ACID BLOOD (12/06/2024 1:03 PM CDT) Lactic Acid-Stat 1.1 <=2.0 mmol/L 12/06/2024 1:40 PM CDT [facility] Blood BLOOD SPECIMEN / Unknown Lab Venipuncture / Unknown 12/06/2024 1:03 PM CDT 12/06/2024 1:16 PM CDT us Sharon Duggan MD LAB - CHEMISTRY ORDERABLES Fi nal Result Performing Organization Address [facility] Co de Phone Number [address] [address], [place] [phone] * CT Abdomen Pelvis W Contrast (12/05/2024 [...] ultrasound. > Dictated by Dhruv Rascon MD (resident inspector). I, Tarun Andersen MD have personally reviewed and interpreted this examination/study. > Interpreting Provider: Tarun Andersen MD on 12/06/2024 1:50 AM Narrative 12/06/2024 1:50 AM CDT PROCEDURE: CT ABDOMEN PELVIS W CONTRAST, DATE/TIME OF EXAM: 12/05/2024 11:39 PM, LOCATION [facility] INDICATION: R10.9: Abdominal pain, unspecified abdominal location [...] DATE/TIME OF EXAM: 12/05/2024 11:39 PM, LOCATION [facility] INDICATION: R10.9: Abdominal pain, unspecified abdominal location [...] ultrasound. > Dictated by Dhruv Rascon MD (resident inspector). I, Tarun Andersen MD have personally reviewed and interpreted this examination/study. > Interpreting Provider: Tarun Andersen MD on 12/06/2024 1:50 AM Arnulfo Hurley MD CT ORDERABLES Final Resu lt * TRICHOMONAS VAGINALIS KASSIDY (12/05/2024 9:14 PM CDT) Trichomonas by KASSIDY NEGATIVE NEGATIVE 12/06/2024 5:52 AM CDT [facility] MICROBIOLOGY Microbiology URINE / Unknown Collection / Unknown 12/05/2024 9:14 PM CDT 12/05/2024 9:19 PM CDT Arnulfo Hurley MD LAB - MICROBIOLOGY ORDERAB LES Final Result [facility]CRO[facility] [address] [place] [address], [facility] [phone] * CHLAMYDIA AND N. GONORRHOEAE KASSIDY (12/05/2024 9:14 PM CDT) Chlamydia by KASSIDY NEGATIVE NEGATIVE 12/06/2024 5:52 AM CDT [facility] Neisseria gonorrhoeae KASSIDY NEGATIVE NEGATIVE 12/06/2024 5:52 AM CDT [facility] MICROBIOLOG[facility] Microbiology URINE / Unknown Collection / Unknown 12/05/2024 9:14 PM CDT 12/05/2024 9:19 PM CDT Arnulfo Hurley MD LAB - MICROBIOLOGY ORDERAB LES Final Result [facility]CRO[facility] [address] [place] [address], [facility] [phone] * (ABNORMAL) URINALYSIS W/MICROSCOPIC REFLEX TO CULTURE (12/05/2024 7:46 PM CDT) Color UA Yellow Yellow, Straw 12/05/2024 8:13 PM [facility] Clarity UA Clear Clear 12/05/2024 8:13 PM [facility] Glucose UA 1+(A) Normal 12/05/2024 8:13 PM [facility] Bilirubin UA Negative Negative 12/05/2024 8:13 PM [facility] Ketone UA 4+(A) Negative 12/05/2024 8:13 PM [facility] Specific Kelford UA 1.032(H) 1.005 - 1.030 12/05/2024 8:13 PM [facility] Blood UA 1+(A) Negative 12/05/2024 8:13 PM [facility] pH UA 6.5 5.0 - 8.0 pH 12/05/2024 8:13 PM [facility] Protein UA 2+(A) Negative 12/05/2024 8:13 PM [facility] Urobilinogen UA 2.0(A) Normal mg/dL 025 8:13 PM [facility] Nitrite UA Negative Negative 12/05/2024 8:13 PM [facility] Leukocyte Esterase UA Negative Negative 12/05/2024 8:13 PM [facility] RBC UA 6-10(A) 0 - 5 # /hpf 12/05/2024 8:13 PM [facility] WBC UA 0-5 0 - 5 # /hpf 12/05/2024 8:13 PM [facility] Bacteria UA None Seen None Seen 12/05/2024 8:13 PM [facility] Squamous Epithelial Cells None Seen 0 - 5 /hpf 12/05/2024 8:13 PM [facility] Mucus UA 3+ /LPF 12/05/2024 8:13 PM [facility] Urine URINE SPECIMEN OBTAINED BY CLEAN CATCH PROCEDURE / Unknown Collection / Unknown 12/05/2024 7:46 PM CDT 12/05/2024 7:48 PM T us Delicia Dueñas PA-C LAB - URINALYSIS ORDERABLES F inal Result [facility] [address] [place] [address], [facility] [phone] * (ABNORMAL) CBC W AUTO DIFFERENTIAL (12/05/2024 5:16 PM CDT) WBC 10.7 4.0 - 10.7 x10E9/L 12/05/2024 7:36 PM T [facility] RBC Count 4.23 3.90 - 5.20 x10E12/L 12/05/2024 7:36 PM [facility] Hemoglobin 12.6 11.9 - 15.8 g/dL 12/05/2024 7:36 PM [facility] Hematocrit 37.1 34.8 - 46.1 % 12/05/2024 7:36 PM [facility] MCV 87.7 80.0 - 98.0 fL 12/05/2024 7:36 PM [facility] MCH 29.8 26.7 - 33.6 pg 12/05/2024 7:36 PM [facility] MCHC 34.0 31.7 - 36.3 g/dL 12/05/2024 7:36 PM [facility] RDW-CV 12.8 11.3 - 14.8 % 12/05/2024 7:36 PM [facility] Platelet Count 12/05/2024 7:36 PM [facility] Comment:Platelets clumped on slide but appears adequate. Recommend repeat with a sodium citrate blue top tube. MPV 12/05/2024 7:36 PM [facility] Comment:Unable to report Neutrophil % 93.5(H) 41.0 - 74.0 % 12/05/2024 7:36 PM [facility] Lymphocyte % 3.6(L) 17.0 - 47.0 % 12/05/2024 7:36 PM [facility] Monocyte % 2.3(L) 3.0 - 11.0 % 12/05/2024 7:36 PM [facility] Eosinophil % 0.1 0.0 - 7.0 % 12/05/2024 7:36 PM T [facility] Basophil % 0.1 0.0 - 1.6 % 12/05/2024 7:36 PM T [facility] Immature Granulocytes % 0.4 0.0 - 1.0 % 12/05/2024 7:36 PM [facility] Neutrophil Absolute 9.98(H) 1.60 - 7.50 x10E9/L 12/05/2024 7:36 PM T [facility] Lymphocyte Absolute 0.38(L) 1.00 - 4.40 x10E9/L 12/05/2024 7:36 PM [facility] Monocyte Absolute 0.24 0.15 - 1.00 x10E9/L 12/05/2024 7:36 PM [facility] Eosinophil Absolute 0.01 0.00 - 0.60 x10E9/L 12/05/2024 7:36 PM [facility] Basophil Absolute 0.01 0.00 - 0.13 x10E9/L 12/05/2024 7:36 PM [facility] Blood BLOOD SPECIMEN / Unknown Venipuncture / Unknown 12/05/2024 5:16 PM CDT 12/05/2024 5:45 PM CDT us Delicia Dueñas PA-C LAB - HEMATOLOGY ORDERABLES F inal Result [facility] [address] [place] [address], [facility] [phone] * (ABNORMAL) COMPREHENSIVE METABOLIC PANEL (12/05/2024 5:16 PM CDT) BUN 13 7 - 26 mg/dL 12/05/2024 6:11 PM [facility] Creatinine 0.47(L) 0.56 - 0.96 mg/dL 12/05/2024 6:11 PM [facility] Sodium 136 136 - 145 mmol/L 12/05/2024 6:11 PM [facility] Potassium 3.5 3.5 - 4.5 mmol/L 12/05/2024 6:11 PM [facility] Chloride 105 98 - 107 mmol/L 12/05/2024 6:11 PM [facility] CO2 14(L) 22 - 29 mmol/L 12/05/2024 6:11 PM [facility] Glucose 157(H) 70 - 99 mg/dL 12/05/2024 6:11 PM [facility] Calcium 9.7 8.4 - 10.2 mg/dL 12/05/2024 6:11 PM [facility] Protein Total 8.1 6.0 - 8.3 g/dL 12/05/2024 6:11 PM [facility] Albumin 4.9 3.4 - 5.0 g/dL 12/05/2024 6:11 PM [facility] Bilirubin Total 1.3(H) 0.2 - 1.2 mg/dL 12/05/2024 6:11 PM [facility] Alkaline Phosphatase 48 40 - 150 U/L 12/05/2024 6:11 PM [facility] ALT 15 5 - 55 U/L 12/05/2024 6:11 PM [facility] AST 22 5 - 34 U/L 12/05/2024 6:11 PM [facility] Anion Gap 17(H) 6 - 16 12/05/2024 6:11 PM [facility] BUN/Creatinine Ratio 28(H) 7 - 23 12/05/2024 6:11 PM [facility] Osmolality Calculated 285 275 - 295 mOsm/kg 12/05/2024 6:11 PM [facility] Albumin/Globulin Ratio 1.5 1.1 - 2.3 12/05/2024 6:11 PM [facility] eGFR by CKD-EPI >90 >=90 mL/min/1.7 3 m2 12/05/2024 6:11 PM [facility] Blood BLOOD SPECIMEN / Unknown Venipuncture / Unknown 12/05/2024 5:16 PM CDT 12/05/2024 5:32 PM T us Delicia Wahler PA-C LAB - CHEMISTRY ORDERABLES Fi nal Result Performing Organization Address City/[facility]/ZIP Co de Phone Number [address] [address], [place] [phone] * HCG BETA BLOOD QUANTITATIVE (12/05/2024 5:16 PM CDT) [facility] Beta-hCG Total Quantitative <3 mIU/mL 12/05/2024 6:17 PM CDT [facility] Comment: HCG Numeric Result Interpretation: Non- Females: [...] ORDERABLES Fi nal Result Performing Organization Address [facility]/ZIP Co de Phone Number [address] [address], [place] [phone] * (ABNORMAL) LIPASE BLOOD (12/05/2024 5:16 PM CDT) [facility] Lipase 7(L) 8 - 78 U/L 12/05/2024 6:11 PM CDT [facility] Blood BLOOD SPECIMEN / Unknown Venipuncture / Unknown 12/05/2024 5:16 PM CDT 12/05/2024 5:32 PM CDT Narrative [facility] - 12/05/2024 6:11 PM CDT Lipase results from the [employer] analyzer may not be comparable with other methodologies. Delicia KHANC LAB - CHEMISTRY ORDERABLES Fi nal Result Performing Organization Address City/[facility]/ZIP Co de Phone Number [address] [address], [place] [phone] from Last 3 Months Insurance [facility] Advance Directives * Full Code (Latest Code Status on File) Date Activated Date Inactivated Comments 12/06/2024 8:59 AM 12/13/2024 4:56 PM Care Teams Public Service Director Relationship Specialty Start Date End Date Krick, Yoselyn, MD [address] [address] PCP - Attributed-[employer] [facility] 11/30/23
[2025-02-21] MEDS: ACETAMINOPHEN 500 MG TABLET 1000 MG PO (18:22)
[2025-02-21] MEDS: KETOROLAC 30 MG/ML VIAL (*BKC) IV PUSH (18:22)
[2025-02-21] MEDS: ONDANSETRON INJ 4 MG/2 ML VIAL IV PUSH (18:22)
[2025-02-21] MEDS: SODIUM CHLORIDE 0.9% IV 1,000 ML 999 ML IV CONT ×2 (18:23→20:09)
[2025-02-21 18:31] LABS: BEDSIDEPREGUCG Negative (Negative)
[2025-02-21 18:59] LABS: Pregnancy On Board Control Positive
--- NOTE | 2025-02-21 19:15 | PC.NURSE ---
Pt ambulatory to bathroom with steady gait.
--- NOTE | 2025-02-21 20:37 | PC.NURSE ---
Pt provided with apple juice, able to tolerate well.
[2025-02-21 20:38] VITALS: BP 134/84; PULSE 70; RESP 16; O2SAT 100
--- NOTE | 2025-02-21 21:44 | PC.NURSE ---
Pt taken to US in W/C
[2025-02-21] MEDS: DICYCLOMINE HCL INJ 20 MG/2 ML VIAL IM (22:59)
[2025-02-21 23:09] VITALS: BP 146/80; PULSE 67; RESP 16; O2SAT 99
== END 2025-02-21 23:12 | disposition home or self-care (01) ==
PROVIDERS: Physician Assistant; Emergency Provider Physician Assistant
DX: K52.9 Noninfective gastroenteritis and colitis, unspecified (principal)
CPT/HCPCS: 36415; 74177; 76830; 76856; 80053; 80307; 81001; 81025; 83690; 85025; 96361; 96372; 96374; 96375; 99284; A9270; J0500; J1885; J2405; J7030; Q9967